=== PATIENT | female | born 1940 | race Caucasian/White ===

== ENCOUNTER 2022-10-25 09:20 | Inpatient (IN) | payer OTHER ==
[~2022-10-25] VITALS: Ht 160 cm; Wt 62.6 kg
[2022-10-25 10:31] LABS: Basophils # (auto) 0 10 ^3/uL (0-0.2); Basophils % (auto) 0.4 % (0.0-2.0); Eosinophils # (auto) 0.1 10 ^3/uL (0-0.8); Eosinophils % (auto) 0.9 % (0.0-7.0); Hemoglobin 13.7 g/dL (12.2-16.2); Lymphocytes # (auto) 0.6 10 ^3/uL (0.4-5.4); Lymphocytes % (auto) 6.3 % (10.0-50.0); Mean Corpuscular Hemoglobin 31.2 pg (28.0-32.0); Mean Corpuscular Hgb Conc. 34.2 g/dL (32.0-36.0); Mean Corpuscular Volume 91.5 fL (80.0-100.0); Monocytes # (auto) 0.4 10 ^3/uL (0-1.3); Monocytes % (auto) 4.8 % (0.0-12.0); Neutrophils # (auto) 7.8 10 ^3/uL (1.6-8.6); Neutrophils % (auto) 87.6 % (37.0-80.0); Nucleated Red Blood Cells % 0.3 %; Red Blood Cells 4.38 10^6/uL (4.0-5.20); Red Cell Distribution Width 15.4 % (11.8-14.3); White Blood Cell 8.9 10^3/uL (4.4-10.8)
[2022-10-25 10:56] LABS: Albumin 3.4 g/dL (3.4-5.0); Calcium 8.9 mg/dL (8.5-10.1); Potassium 3.1 mmol/L (3.5-5.1)
[2022-10-25 10:59] LABS: BUN/Creatinine Ratio 19.4 (10.0-20.0); Bilirubin, Total 0.5 mg/dL (0.2-1.0)
[2022-10-25] MEDS ORDERED: POTASSIUM EFFERVESENT TAB 25 MEQ PO ONE ×2 (12:15→13:45)
[2022-10-25] MEDS ORDERED: ONDANSETRON HCL 4 MG/2 ML VIAL IV ONE ×2 (12:45→20:30)
[2022-10-25] MEDS ORDERED: HYDROmorphone HCL 2 MG/ML VL/or syr IV ONE ×2 (12:45→20:30)
[2022-10-25] MEDS ORDERED: ACETAMINOPHEN 325 MG TAB PO PRN ×2 (13:15)
[2022-10-25] MEDS ORDERED: PANTOPRAZOLE 40 MG/10 ML VIAL INJ IV ONE (13:45)
[2022-10-25] MEDS: SODIUM CHLORIDE 0.9% 1,000 ML IV SCH (20:34)
[2022-10-25] MEDS: HEPARIN SODIUM (PORCINE) 5000 UNITS/ML 1ML VIAL SC SCH (22:19)
[2022-10-26] MEDS: SODIUM CHLORIDE 0.9% 1,000 ML IV SCH ×2 (02:35→16:03)
[2022-10-26 06:33] LABS: Albumin 2.6 g/dL (3.4-5.0); BUN/Creatinine Ratio 22.8 (10.0-20.0); Calcium 8.7 mg/dL (8.5-10.1); Potassium 4.2 mmol/L (3.5-5.1)
[2022-10-26 06:36] LABS: Bilirubin, Total 0.5 mg/dL (0.2-1.0)
[2022-10-26 07:07] LABS: Basophils # (auto) 0 10 ^3/uL (0-0.2); Basophils % (auto) 0.2 % (0.0-2.0); Eosinophils # (auto) 0 10 ^3/uL (0-0.8); Hematocrit 29.4 % (36.0-46.0); Lymphocytes # (auto) 0.5 10 ^3/uL (0.4-5.4); Lymphocytes % (auto) 4.2 % (10.0-50.0); Mean Corpuscular Hemoglobin 31.9 pg (28.0-32.0); Mean Corpuscular Hgb Conc. 34.1 g/dL (32.0-36.0); Mean Corpuscular Volume 93.5 fL (80.0-100.0); Monocytes # (auto) 1.1 10 ^3/uL (0-1.3); Monocytes % (auto) 9.5 % (0.0-12.0); Neutrophils # (auto) 9.9 10 ^3/uL (1.6-8.6); Neutrophils % (auto) 86.1 % (37.0-80.0); Nucleated Red Blood Cells % 0.1 %; Red Blood Cells 3.14 10^6/uL (4.0-5.20); Red Cell Distribution Width 15.3 % (11.8-14.3); White Blood Cell 11.5 10^3/uL (4.4-10.8)
[2022-10-26] MEDS: HEPARIN SODIUM (PORCINE) 5000 UNITS/ML 1ML VIAL SC SCH (09:46)
[2022-10-26] MEDS: PANTOPRAZOLE 40 MG/10 ML VIAL INJ IV SCH (09:46)
[2022-10-26] MEDS: ONDANSETRON HCL 4 MG/2 ML VIAL IV PRN ×2 (13:14→17:11)
[2022-10-26] MEDS: HYDROmorphone HCL 2 MG/ML VL/or syr IV PRN ×2 (13:16→17:11)
[2022-10-26 15:41] LABS: Urine Bacteria MANY /hpf (None Seen); Urine Blood 3+ /uL (Negative); Urine Mucus FEW (None Seen); Urine Specific Gravity 1.017 (1.001-1.035); Urine WBC 79 /hpf (0 - 5)
[2022-10-27] MEDS: HYDROmorphone HCL 2 MG/ML VL/or syr IV PRN ×2 (01:48→20:09)
[2022-10-27] MEDS: ONDANSETRON HCL 4 MG/2 ML VIAL IV PRN ×2 (01:48→20:12)
[2022-10-27] MEDS: SODIUM CHLORIDE 0.9% 1,000 ML IV SCH ×2 (05:12→19:39)
[2022-10-27] MEDS ORDERED: DexAMETHasone SOD PHOS 4 MG/1ML SDV INJ ONE (07:27)
[2022-10-27] MEDS ORDERED: ONDANSETRON HCL 4 MG/2 ML VIAL ONE (08:20)
[2022-10-27] MEDS ORDERED: DexAMETHasone SOD PHOS 10MG/1ML VIAL INJ ONE (08:20)
[2022-10-27] MEDS ORDERED: GLYCOPYRROLATE 0.2 MG/ML 1ML VIAL ONE (08:20)
[2022-10-27] MEDS ORDERED: KETOROLAC TROMETH 30 MG/ML 1ML VIAL ONE (08:20)
[2022-10-27] MEDS ORDERED: PROPOFOL 10 MG/ML 20 ML IV ONE (08:20)
[2022-10-27] MEDS ORDERED: PHENYLEPHRINE HCL 10 MG/ML VL IV ONE (08:30)
[2022-10-27] MEDS: cefTRIAXone 1GM/50ML D5W 50 ML IV SCH (08:58)
[2022-10-27] MEDS: PANTOPRAZOLE 40 MG/10 ML VIAL INJ IV SCH (10:00)
[2022-10-27] MEDS ORDERED: METOPROLOL TARTRATE 1MG/1ML-5ML VIAL IV ONE (10:24)
[2022-10-27] MEDS ORDERED: LIDOCAINE 1% (LOCAL ANESTH.) PF 5ml SDV ONE (12:14)
[2022-10-27] MEDS ORDERED: HYDROmorphone HCL 2 MG/ML VL/or syr IV PRN (12:15)
[2022-10-27] MEDS ORDERED: LABETALOL HCL 5 MG/ML 4ML SYRINGE IV PRN (12:15)
[2022-10-27] MEDS ORDERED: hydrALAZINE HCL 20 MG/ML VL IV PRN (12:15)
[2022-10-27] MEDS ORDERED: FLUMAZENIL 0.1 MG/ML INJ 10ML MDV IV PRN (12:15)
[2022-10-27] MEDS ORDERED: fentaNYL CITRATE 100 MCG/2 ML VL IV PRN (12:15)
[2022-10-27] MEDS ORDERED: ONDANSETRON HCL 4 MG/2 ML VIAL IV PRN (12:15)
[2022-10-27] MEDS ORDERED: ePHEDrine SULFATE 50 MG/ML AMP IV PRN (12:15)
[2022-10-27] MEDS ORDERED: NALOXONE HCL 0.4 MG/ML VIAL IV PRN (12:15)
[2022-10-27 16:30] VITALS: BP_SYST 116; BP_SYST 145; BP_DIAS 58; BP_DIAS 61
[2022-10-27 17:00] VITALS: BP 127/57
[2022-10-27 18:02] VITALS: BP 145/61
[2022-10-27] MEDS ORDERED: ATENOLOL 25 MG TAB PO ONE (18:30)
[2022-10-27 20:00] VITALS: BP 116/58
[2022-10-27 22:00] VITALS: BP 116/58
[2022-10-27] MEDS: NIFEdipine ER 30 MG TAB PO SCH (22:00)
[2022-10-27] MEDS: ATORVASTATIN 20 MG TAB PO SCH (23:31)
[2022-10-28] VITALS (9 sets, daily range): BP systolic 110–131; BP diastolic 52–63
[2022-10-28 06:33] LABS: Basophils # (auto) 0 10 ^3/uL (0-0.2); Eosinophils # (auto) 0 10 ^3/uL (0-0.8); Lymphocytes # (auto) 0.4 10 ^3/uL (0.4-5.4); Red Cell Distribution Width 15.6 % (11.8-14.3)
[2022-10-28 06:36] LABS: BUN/Creatinine Ratio 37.5 (10.0-20.0); Basophils % (auto) 0.1 % (0.0-2.0); Eosinophils % (auto) 0.1 % (0.0-7.0); Hematocrit 21.5 % (36.0-46.0); Hemoglobin 7.5 g/dL (12.2-16.2); Lymphocytes % (auto) 3.7 % (10.0-50.0); Magnesium 1.9 mg/dL (1.6-2.6); Mean Corpuscular Hemoglobin 33.1 pg (28.0-32.0); Mean Corpuscular Hgb Conc. 35.1 g/dL (32.0-36.0); Mean Corpuscular Volume 94.2 fL (80.0-100.0); Monocytes # (auto) 1.2 10 ^3/uL (0-1.3); Monocytes % (auto) 10.8 % (0.0-12.0); Neutrophils # (auto) 9.4 10 ^3/uL (1.6-8.6); Neutrophils % (auto) 85.3 % (37.0-80.0); Nucleated Red Blood Cells % 0.1 %; Potassium 4.1 mmol/L (3.5-5.1); Red Blood Cells 2.28 10^6/uL (4.0-5.20)
[2022-10-28 06:44] LABS: Calcium 8.6 mg/dL (8.5-10.1)
[2022-10-28] MEDS: cefTRIAXone 1GM/50ML D5W 50 ML IV SCH (08:26)
[2022-10-28] MEDS: ONDANSETRON HCL 4 MG/2 ML VIAL IV PRN (08:33)
[2022-10-28] MEDS: HYDROmorphone HCL 2 MG/ML VL/or syr IV PRN (08:34)
[2022-10-28] MEDS: SODIUM CHLORIDE 0.9% 1,000 ML IV SCH ×2 (08:36→15:52)
[2022-10-28] MEDS: PANTOPRAZOLE 40 MG/10 ML VIAL INJ IV SCH (09:16)
[2022-10-28] MEDS: ATENOLOL 25 MG TAB PO SCH (09:17)
[2022-10-28] MEDS: NIFEdipine ER 30 MG TAB PO SCH (09:18)
[2022-10-28] MEDS ORDERED: FUROSEMIDE 20 MG TAB PO SCH (10:00)
[2022-10-28] MEDS ORDERED: ATEN-60 PO (17:05)
[2022-10-28] MEDS ORDERED: ATO40T PO (17:05)
[2022-10-28] MEDS ORDERED: FURO20TA3 PO (17:05)
[2022-10-28] MEDS ORDERED: TOPI50TA53 PO (17:05)
[2022-10-28] MEDS ORDERED: NIF10C PO (17:05)
[2022-10-28] MEDS ORDERED: ASPI325T4 PO (17:05)
[2022-10-28] MEDS ORDERED: BUTAPT PO (17:05)
[2022-10-28] MEDS ORDERED: LEVO25CA3 PO (17:05)
[2022-10-28 18:27] LABS: Hematocrit 26.6 % (36.0-46.0); Hemoglobin 9.1 g/dL (12.2-16.2)
[2022-10-28] MEDS: ATORVASTATIN 20 MG TAB PO SCH (21:28)
[2022-10-29] VITALS (7 sets, daily range): BP systolic 101–157; BP diastolic 55–87
[2022-10-29] MEDS: ONDANSETRON HCL 4 MG/2 ML VIAL IV PRN ×3 (05:44→20:27)
[2022-10-29] MEDS: HYDROmorphone HCL 2 MG/ML VL/or syr IV PRN ×3 (05:45→20:32)
[2022-10-29 06:01] LABS: Basophils # (auto) 0 10 ^3/uL (0-0.2); Basophils % (auto) 0.2 % (0.0-2.0); Eosinophils # (auto) 0.1 10 ^3/uL (0-0.8); Eosinophils % (auto) 0.6 % (0.0-7.0); Hematocrit 27.4 % (36.0-46.0); Hemoglobin 9.5 g/dL (12.2-16.2); Lymphocytes # (auto) 0.5 10 ^3/uL (0.4-5.4); Lymphocytes % (auto) 5.7 % (10.0-50.0); Mean Corpuscular Hemoglobin 31.9 pg (28.0-32.0); Mean Corpuscular Hgb Conc. 34.8 g/dL (32.0-36.0); Mean Corpuscular Volume 91.6 fL (80.0-100.0); Monocytes # (auto) 0.8 10 ^3/uL (0-1.3); Monocytes % (auto) 8.9 % (0.0-12.0); Neutrophils # (auto) 7.2 10 ^3/uL (1.6-8.6); Neutrophils % (auto) 84.6 % (37.0-80.0); Red Blood Cells 2.99 10^6/uL (4.0-5.20); Red Cell Distribution Width 15.2 % (11.8-14.3); White Blood Cell 8.5 10^3/uL (4.4-10.8)
[2022-10-29 06:13] LABS: INR 0.97 (0.9-1.15); Partial Thromboplastin Time 28.3 sec (24.6-33.4)
[2022-10-29 06:18] LABS: Calcium 8.2 mg/dL (8.5-10.1); Potassium 3.7 mmol/L (3.5-5.1)
[2022-10-29 06:20] LABS: BUN/Creatinine Ratio 38.7 (10.0-20.0)
[2022-10-29] MEDS: cefTRIAXone 1GM/50ML D5W 50 ML IV SCH (08:21)
[2022-10-29] MEDS: PANTOPRAZOLE 40 MG/10 ML VIAL INJ IV SCH (10:46)
[2022-10-29] MEDS: ATENOLOL 25 MG TAB PO SCH (10:47)
[2022-10-29] MEDS: SODIUM CHLORIDE 0.9% 1,000 ML IV SCH (10:47)
[2022-10-29] MEDS: NIFEdipine ER 30 MG TAB PO SCH (10:47)
[2022-10-29] MEDS ORDERED: fentaNYL CITRATE 100 MCG/2 ML VL ONE (10:49)
[2022-10-29] MEDS ORDERED: SODIUM CHLORIDE LOCK 10 ML ONE (10:49)
[2022-10-29] MEDS ORDERED: DexAMETHasone SOD PHOS 10MG/1ML VIAL INJ ONE (10:49)
[2022-10-29] MEDS ORDERED: ONDANSETRON HCL 4 MG/2 ML VIAL ONE (10:49)
[2022-10-29] MEDS ORDERED: PROPOFOL 10 MG/ML 20 ML IV ONE (10:49)
[2022-10-29] MEDS ORDERED: MIDAZOLAM HCL 2MG/2ML 2ml VIAL (1mg/ml) ONE (10:49)
[2022-10-29] MEDS ORDERED: EPINEPHrine HCL 1 MG/1 ML AMP ONE (10:49)
[2022-10-29] MEDS ORDERED: BUPIVACAINE 0.5% P/F INJ 10 ML VIAL ONE (10:52)
[2022-10-29] MEDS ORDERED: ceFAZolin 1GM/50ML 100 ML IV ONE (11:25)
[2022-10-29] MEDS: HYDROcodone-ACET 5/325MG TAB PO PRN (18:44)
[2022-10-29] MEDS: ATORVASTATIN 20 MG TAB PO SCH (21:38)
[2022-10-30 00:20] VITALS: BP 135/64
[2022-10-30 05:00] VITALS: BP 141/68
[2022-10-30] MEDS: SODIUM CHLORIDE 0.9% 1,000 ML IV SCH ×2 (05:45→14:07)
[2022-10-30 05:56] LABS: Basophils # (auto) 0 10 ^3/uL (0-0.2); Basophils % (auto) 0.2 % (0.0-2.0); Eosinophils # (auto) 0 10 ^3/uL (0-0.8); Eosinophils % (auto) 0.2 % (0.0-7.0); Hematocrit 24.9 % (36.0-46.0); Hemoglobin 8.9 g/dL (12.2-16.2); Lymphocytes # (auto) 0.4 10 ^3/uL (0.4-5.4); Lymphocytes % (auto) 4.5 % (10.0-50.0); Mean Corpuscular Hemoglobin 32.6 pg (28.0-32.0); Mean Corpuscular Volume 90.7 fL (80.0-100.0); Monocytes # (auto) 0.9 10 ^3/uL (0-1.3); Monocytes % (auto) 9.6 % (0.0-12.0); Neutrophils # (auto) 8.3 10 ^3/uL (1.6-8.6); Neutrophils % (auto) 85.5 % (37.0-80.0); Red Blood Cells 2.74 10^6/uL (4.0-5.20); Red Cell Distribution Width 14.9 % (11.8-14.3); White Blood Cell 9.8 10^3/uL (4.4-10.8)
[2022-10-30] MEDS: HYDROcodone-ACET 5/325MG TAB PO PRN ×2 (05:58→19:57)
[2022-10-30 06:10] LABS: BUN/Creatinine Ratio 31.4 (10.0-20.0); Calcium 8.2 mg/dL (8.5-10.1); Potassium 3.5 mmol/L (3.5-5.1)
[2022-10-30 09:00] VITALS: BP 136/73
[2022-10-30] MEDS: PANTOPRAZOLE 40 MG/10 ML VIAL INJ IV SCH (10:09)
[2022-10-30] MEDS: cefTRIAXone 1GM/50ML D5W 50 ML IV SCH (10:09)
[2022-10-30] MEDS: NIFEdipine ER 30 MG TAB PO SCH (10:11)
[2022-10-30] MEDS: ATENOLOL 25 MG TAB PO SCH (10:11)
[2022-10-30] MEDS: HYDROmorphone HCL 2 MG/ML VL/or syr IV PRN ×2 (10:13→14:00)
[2022-10-30 13:00] VITALS: BP 125/56
[2022-10-30 16:47] VITALS: BP 131/61
[2022-10-30] MEDS: ATORVASTATIN 20 MG TAB PO SCH (21:45)
[2022-10-30 22:00] VITALS: BP 130/59
[2022-10-31] MEDS: HYDROcodone-ACET 5/325MG TAB PO PRN ×3 (03:42→16:09)
[2022-10-31 05:00] VITALS: BP 114/55
[2022-10-31 09:00] VITALS: BP 124/59
[2022-10-31] MEDS: cefTRIAXone 1GM/50ML D5W 50 ML IV SCH (09:52)
[2022-10-31] MEDS: PANTOPRAZOLE 40 MG/10 ML VIAL INJ IV SCH (09:52)
[2022-10-31] MEDS: NIFEdipine ER 30 MG TAB PO SCH (09:53)
[2022-10-31] MEDS: ATENOLOL 25 MG TAB PO SCH (09:54)
[2022-10-31 13:00] VITALS: BP 135/66
[2022-10-31] MEDS ORDERED: BUTALBITAL ACETAMINOPHEN CAFFEINE PO PRN (14:00)
[2022-10-31 17:00] VITALS: BP 104/57
[2022-10-31] MEDS ORDERED: TOPIRAMATE 25 MG TAB PO SCH (22:00)
[2022-10-31] MEDS ORDERED: PATIENTS OWN MEDICATION (Atorvastatin Calcium (Lipitor) 1 TAB) PO SCH (22:00)
[2022-11-01] MEDS ORDERED: LEVOTHYROXINE SODIUM 25 MCG TAB PO SCH (07:00)
[2022-11-01] MEDS ORDERED: ASPirin-EC 81 mg tab PO SCH (10:00)
[2022-11-01] MEDS ORDERED: FUROSEMIDE 20 MG TAB PO SCH (10:00)
== END 2022-10-31 19:30 | DRG 480 ==
LOC: ER 09:20 → EDBD 09:20 → EDUNIT# 09:20 → TELE 13:03 → TELE-EAST 10-27 15:28
PROVIDERS: ADMIT Nurse Practitioner Family; ATTEND Internal Medicine
PROC: BQ11ZZZ Fluoroscopy of Left Hip (ICD-10-PCS; 2022-10-27)
PROC: 0QS704Z Reposition Left Upper Femur with Internal Fixation Device, Open Approach (ICD-10-PCS; principal; 2022-10-27 10:20)
PROC: 30233N1 Transfusion of Nonautologous Red Blood Cells into Peripheral Vein, Percutaneous Approach (ICD-10-PCS; 2022-10-28)
PROC: 0QSB34Z Reposition Right Lower Femur with Internal Fixation Device, Percutaneous Approach (ICD-10-PCS; 2022-10-29)
PROC: BQ13ZZZ Fluoroscopy of Right Femur (ICD-10-PCS; 2022-10-29)
DX: S72.22XA Displaced subtrochanteric fracture of left femur, initial encounter for closed fracture (principal); J18.9 Pneumonia, unspecified organism; N30.00 Acute cystitis without hematuria; J44.0 Chronic obstructive pulmonary disease with (acute) lower respiratory infection; E87.6 Hypokalemia; R74.8 Abnormal levels of other serum enzymes; E78.5 Hyperlipidemia, unspecified; I25.10 Atherosclerotic heart disease of native coronary artery without angina pectoris; I11.0 Hypertensive heart disease with heart failure; J44.9 Chronic obstructive pulmonary disease, unspecified; W01.0XXA Fall on same level from slipping, tripping and stumbling without subsequent striking against object, initial encounter; S72.451A Displaced supracondylar fracture without intracondylar extension of lower end of right femur, initial encounter for closed fracture; Z95.5 Presence of coronary angioplasty implant and graft; Z90.11 Acquired absence of right breast and nipple; D50.0 Iron deficiency anemia secondary to blood loss (chronic); Z79.899 Other long term (current) drug therapy; Z88.5 Allergy status to narcotic agent; Y93.89 Activity, other specified; Y92.098 Other place in other non-institutional residence as the place of occurrence of the external cause; Y99.8 Other external cause status; I50.9 Heart failure, unspecified
CPT/HCPCS: 29505; 36415; 71045; 73502; 73560; 73700; 76000; 80048; 80053; 81001; 83735; 83880; 84484; 85014; 85018; 85025; 85610; 85730; 86850; 86900; 86901; 86920; 87086; 87088; 87186; 93005; 93306; 93970; 97110; 97163; 97530; C9113; G0378; J0171; J0690; J0696; J1100; J1885; J2250; J2405; J2704; J3490

== ENCOUNTER 2022-12-08 11:48 | Inpatient (IN) | payer OTHER ==
[~2022-12-08] VITALS: Ht 160 cm; Wt 66.4 kg
[~2022-12-08 11:48] MED LIST: ASPI325T4 PO; ATEN-60 PO; ATO40T PO; BUTAPT PO; FURO20TA3 PO; LEVO25CA3 PO; NIF10C PO; TOPI50TA53 PO
[2022-12-08] MEDS ORDERED: SODIUM CHLORIDE 0.9% 500 ML IVB ONE (12:00)
[2022-12-08] MEDS: PANTOPRAZOLE 40 MG/10 ML VIAL INJ IV ONE ×2 (12:14→12:24)
[2022-12-08 12:36] LABS: Basophils # (auto) 0 10 ^3/uL (0-0.2); Basophils % (auto) 0.3 % (0.0-2.0); Eosinophils # (auto) 0.1 10 ^3/uL (0-0.8); Eosinophils % (auto) 1.1 % (0.0-7.0); Hemoglobin 9.5 g/dL (12.2-16.2); Lymphocytes # (auto) 0.5 10 ^3/uL (0.4-5.4); Mean Corpuscular Hemoglobin 29.8 pg (28.0-32.0); Mean Corpuscular Hgb Conc. 32.7 g/dL (32.0-36.0); Mean Corpuscular Volume 91.3 fL (80.0-100.0); Monocytes # (auto) 0.8 10 ^3/uL (0-1.3); Neutrophils # (auto) 10.6 10 ^3/uL (1.6-8.6); Neutrophils % (auto) 87.6 % (37.0-80.0); Red Blood Cells 3.17 10^6/uL (4.0-5.20); Red Cell Distribution Width 16.4 % (11.8-14.3); White Blood Cell 12.1 10^3/uL (4.4-10.8)
[2022-12-08 12:50] VITALS: PULSE 86; RESP 30; O2SAT 96
[2022-12-08 13:00] LABS: INR 1.01 (0.9-1.15); Partial Thromboplastin Time 28.9 SEC (24.5-34.5); Prothrombin Time 10.6 sec (9.3-11.8)
[2022-12-08] MEDS ORDERED: cefTRIAXone 1GM/50ML D5W 50 ML IV ONE (13:00)
[2022-12-08 13:08] LABS: Albumin 2.3 g/dL (3.4-5.0); Calcium 8.9 mg/dL (8.5-10.1); Magnesium 3.1 mg/dL (1.6-2.6); Potassium 4.5 mmol/L (3.5-5.1)
[2022-12-08 13:12] LABS: BUN/Creatinine Ratio 32.7 (10.0-20.0); Bilirubin, Total 0.3 mg/dL (0.2-1.0); Total Protein 6.5 g/dL (6.4-8.2)
[2022-12-08 13:33] LABS: Urine Bacteria MANY /hpf (None Seen); Urine Blood 3+ /uL (Negative); Urine Clarity CLOUDY (Clear); Urine Protein, UAD 3+ (Negative); Urine Urobilinogen Normal (Negative); Urine WBC 755 /hpf (0 - 5); Urine WBC Clumps PRESENT /hpf (None Seen)
[2022-12-08 13:36] LABS: Urine Specific Gravity 1.013 (1.001-1.035)
[2022-12-08 13:37] LABS: Urine Color Brown (Yellow)
[2022-12-08 14:20] LABS: Lactic Acid w/Reflex 4.2 mmol/L (0.4-2.0)
[2022-12-08] MEDS ORDERED: DOCUSATE SOD 100 MG CAP PO PRN (15:30)
[2022-12-08] MEDS ORDERED: HYDROmorphone HCL 2 MG/ML VL/or syr IV PRN (15:30)
[2022-12-08] MEDS ORDERED: HYDROcodone-ACET 5/325MG TAB PO PRN (15:30)
[2022-12-08] MEDS ORDERED: NITROGLYCERIN 0.4 MG SL TAB SL PRN (15:30)
[2022-12-08] MEDS ORDERED: MORPHINE SULFATE INJ 2 MG/ml SYRG IV PRN (15:30)
[2022-12-08] MEDS ORDERED: IPRATROPIUM BROM 0.5 MG/2.5ML INH SOL NEB PRN (16:00)
[2022-12-08] MEDS ORDERED: ALBUTEROL SULF 2.5 MG/0.5ML(0.5%) NEB SOLN NEB PRN (16:00)
[2022-12-08] MEDS: SODIUM CHLORIDE 0.9% 1,000 ML IV SCH (16:05)
[2022-12-08 16:07] VITALS: BP 135/59; PULSE 86; RESP 16; TEMP 97.7; O2SAT 98
[2022-12-08 18:07] VITALS: O2SAT 94
[2022-12-08 20:06] VITALS: PULSE 92; RESP 18; O2SAT 95
[2022-12-08] MEDS: TOPIRAMATE 25 MG TAB PO SCH (22:32)
[2022-12-08] MEDS: ATORVASTATIN 20 MG TAB PO SCH (22:32)
[2022-12-08] MEDS: MEROPENEM 1GM IVPB 100 ML IV SCH (22:34)
[2022-12-08] MEDS: ACETAMINOPHEN 325 MG TAB PO PRN (23:24)
[2022-12-09 05:40] VITALS: O2SAT 99
[2022-12-09 05:57] LABS: Basophils # (auto) 0 10 ^3/uL (0-0.2); Basophils % (auto) 0.3 % (0.0-2.0); Eosinophils % (auto) 1.3 % (0.0-7.0); Hemoglobin 8.1 g/dL (12.2-16.2); Lymphocytes # (auto) 0.6 10 ^3/uL (0.4-5.4); White Blood Cell 11.6 10^3/uL (4.4-10.8)
[2022-12-09 05:59] LABS: Eosinophils # (auto) 0.1 10 ^3/uL (0-0.8); Hematocrit 24.5 % (36.0-46.0); Lymphocytes % (auto) 5.4 % (10.0-50.0); Mean Corpuscular Hemoglobin 30.5 pg (28.0-32.0); Mean Corpuscular Volume 92.3 fL (80.0-100.0); Monocytes # (auto) 0.7 10 ^3/uL (0-1.3); Monocytes % (auto) 6.3 % (0.0-12.0); Neutrophils % (auto) 86.7 % (37.0-80.0); Nucleated Red Blood Cells % 0.1 %; Red Blood Cells 2.66 10^6/uL (4.0-5.20); Red Cell Distribution Width 16.3 % (11.8-14.3)
[2022-12-09 06:15] LABS: Albumin 1.9 g/dL (3.4-5.0); Calcium 8.1 mg/dL (8.5-10.1); Potassium 3.9 mmol/L (3.5-5.1)
[2022-12-09] MEDS: SODIUM CHLORIDE 0.9% 1,000 ML IV SCH ×3 (06:15→22:19)
[2022-12-09 06:18] LABS: BUN/Creatinine Ratio 33.3 (10.0-20.0); Bilirubin, Total 0.2 mg/dL (0.2-1.0); Total Protein 5.6 g/dL (6.4-8.2)
[2022-12-09] MEDS ORDERED: IOTHALAMATE MEGLUMINE INJ 250ML BOT UR ONE (09:41)
[2022-12-09] MEDS ORDERED: FUROSEMIDE 20 MG TAB PO SCH (10:00)
[2022-12-09] MEDS: PANTOPRAZOLE 40 MG/10 ML VIAL INJ IV SCH (11:10)
[2022-12-09] MEDS: ATENOLOL 25 MG TAB PO SCH (11:10)
[2022-12-09] MEDS: NIFEdipine ER 30 MG TAB PO SCH (11:11)
[2022-12-09] MEDS: TOPIRAMATE 25 MG TAB PO SCH ×2 (11:11→22:14)
[2022-12-09] MEDS: LEVOTHYROXINE SODIUM 25 MCG TAB PO SCH (11:11)
[2022-12-09] MEDS: LACTULOSE 20Gm/30ML SOLN PO SCH (11:12)
[2022-12-09] MEDS: ENOXAPARIN SOD 40 MG/0.4 ML SYRINGE SC SCH (11:12)
[2022-12-09] MEDS: MEROPENEM 1GM IVPB 100 ML IV SCH ×2 (11:12→22:14)
[2022-12-09] MEDS: ACETAMINOPHEN 325 MG TAB PO PRN ×2 (11:14→17:28)
[2022-12-09 11:50] VITALS: PULSE 72; RESP 16; O2SAT 96
[2022-12-09 19:18] VITALS: O2SAT 99
[2022-12-09 19:30] VITALS: PULSE 76; RESP 20; O2SAT 97
[2022-12-09] MEDS: ATORVASTATIN 20 MG TAB PO SCH (22:14)
[2022-12-10] VITALS (10 sets, daily range): BP systolic 108–119; BP diastolic 50–59; PULSE 54–92; RESP 16–22; TEMP 36.2; O2SAT 97–100
[2022-12-10] MEDS: ACETAMINOPHEN 325 MG TAB PO PRN ×4 (03:05→22:47)
[2022-12-10] MEDS ORDERED: FURO40TA4 PO (03:50)
[2022-12-10 05:47] LABS: Anion Gap 3 (5-15); Calcium 8.5 mg/dL (8.5-10.1); Carbon Dioxide 32 mmol/L (21-32); Chloride 97 mmol/L (98-107); GFR African American 216 mL/min; GFR Non-African American 178 mL/min; Glucose 95 mg/dL (74-106); Magnesium 2.4 mg/dL (1.6-2.6); Potassium 4.2 mmol/L (3.5-5.1); Sodium 132 mmol/L (136-145)
[2022-12-10 05:50] LABS: Basophils # (auto) 0 10 ^3/uL (0-0.2); Basophils % (auto) 0.4 % (0.0-2.0); Eosinophils # (auto) 0.4 10 ^3/uL (0-0.8); Eosinophils % (auto) 3.1 % (0.0-7.0); Hematocrit 26.7 % (36.0-46.0); Hemoglobin 8.9 g/dL (12.2-16.2); Lymphocytes # (auto) 0.7 10 ^3/uL (0.4-5.4); Lymphocytes % (auto) 5.8 % (10.0-50.0); Mean Corpuscular Hemoglobin 30.5 pg (28.0-32.0); Mean Corpuscular Hgb Conc. 33.3 g/dL (32.0-36.0); Mean Corpuscular Volume 91.8 fL (80.0-100.0); Monocytes # (auto) 0.9 10 ^3/uL (0-1.3); Monocytes % (auto) 8.2 % (0.0-12.0); Neutrophils # (auto) 9.6 10 ^3/uL (1.6-8.6); Neutrophils % (auto) 82.5 % (37.0-80.0); Red Blood Cells 2.91 10^6/uL (4.0-5.20); Red Cell Distribution Width 16.5 % (11.8-14.3); White Blood Cell 11.6 10^3/uL (4.4-10.8)
[2022-12-10 05:52] LABS: BUN/Creatinine Ratio 32.4 (10.0-20.0); Blood Urea Nitrogen 12 mg/dL (7-18)
[2022-12-10] MEDS: ATENOLOL 25 MG TAB PO SCH (08:59)
[2022-12-10] MEDS: TOPIRAMATE 25 MG TAB PO SCH ×2 (10:00→21:29)
[2022-12-10] MEDS ORDERED: NIFE1TAB31 PO (10:06)
[2022-12-10] MEDS ORDERED: MAGN400T40 PO (10:06)
[2022-12-10] MEDS ORDERED: ASPI-543 PO (10:06)
[2022-12-10] MEDS ORDERED: MULT-1018 PO (10:06)
[2022-12-10] MEDS ORDERED: CHOL20007 PO (10:06)
[2022-12-10] MEDS ORDERED: ASCO500T11 PO (10:06)
[2022-12-10] MEDS: LEVOTHYROXINE SODIUM 25 MCG TAB PO SCH (10:08)
[2022-12-10] MEDS: NIFEdipine ER 30 MG TAB PO SCH (10:09)
[2022-12-10] MEDS: PANTOPRAZOLE 40 MG/10 ML VIAL INJ IV SCH (10:15)
[2022-12-10] MEDS: LACTULOSE 20Gm/30ML SOLN PO SCH (10:16)
[2022-12-10] MEDS: ENOXAPARIN SOD 40 MG/0.4 ML SYRINGE SC SCH (10:16)
[2022-12-10] MEDS: SODIUM CHLORIDE 0.9% 1,000 ML IV SCH (10:26)
[2022-12-10] MEDS: MEROPENEM 1GM IVPB 100 ML IV SCH ×2 (11:49→21:28)
[2022-12-10] MEDS: ATORVASTATIN 20 MG TAB PO SCH (21:29)
[2022-12-11] VITALS (8 sets, daily range): BP systolic 114–143; BP diastolic 50–66; PULSE 75–99; RESP 18–22; TEMP 36.2; O2SAT 96–100
[2022-12-11] MEDS: SODIUM CHLORIDE 0.9% 1,000 ML IV SCH ×2 (03:45→18:13)
[2022-12-11] MEDS: ACETAMINOPHEN 325 MG TAB PO PRN ×3 (04:54→18:09)
[2022-12-11] MEDS: NIFEdipine ER 30 MG TAB PO SCH (09:50)
[2022-12-11] MEDS: LEVOTHYROXINE SODIUM 25 MCG TAB PO SCH (09:50)
[2022-12-11] MEDS: LACTULOSE 20Gm/30ML SOLN PO SCH (09:51)
[2022-12-11] MEDS: PANTOPRAZOLE 40 MG/10 ML VIAL INJ IV SCH (09:51)
[2022-12-11] MEDS: ATENOLOL 25 MG TAB PO SCH (09:51)
[2022-12-11] MEDS: ENOXAPARIN SOD 40 MG/0.4 ML SYRINGE SC SCH (09:51)
[2022-12-11] MEDS: MEROPENEM 1GM IVPB 100 ML IV SCH ×2 (09:52→21:52)
[2022-12-11] MEDS: GENTAMICIN SULF 0.3% OPTH(EYE) OINT 3.5GM EACHEYE SCH ×2 (10:00→22:00)
[2022-12-11] MEDS: TOPIRAMATE 25 MG TAB PO SCH ×2 (10:00→21:52)
[2022-12-11 10:53] LABS: Basophils # (auto) 0 10 ^3/uL (0-0.2); Basophils % (auto) 0.3 % (0.0-2.0); Eosinophils # (auto) 0.3 10 ^3/uL (0-0.8); Eosinophils % (auto) 3.3 % (0.0-7.0); Hematocrit 24.3 % (36.0-46.0); Hemoglobin 7.9 g/dL (12.2-16.2); Lymphocytes # (auto) 0.5 10 ^3/uL (0.4-5.4); Lymphocytes % (auto) 6.4 % (10.0-50.0); Mean Corpuscular Hemoglobin 30.4 pg (28.0-32.0); Mean Corpuscular Hgb Conc. 32.5 g/dL (32.0-36.0); Mean Corpuscular Volume 93.5 fL (80.0-100.0); Monocytes # (auto) 0.5 10 ^3/uL (0-1.3); Monocytes % (auto) 5.7 % (0.0-12.0); Neutrophils % (auto) 84.3 % (37.0-80.0); Red Cell Distribution Width 16.9 % (11.8-14.3); White Blood Cell 8.2 10^3/uL (4.4-10.8)
[2022-12-11] MEDS: ATORVASTATIN 20 MG TAB PO SCH (21:52)
[2022-12-12] VITALS (7 sets, daily range): BP systolic 116–138; BP diastolic 50–77; PULSE 72–87; RESP 17–20; TEMP 36.2; O2SAT 94–99
[2022-12-12] MEDS: ACETAMINOPHEN 325 MG TAB PO PRN ×3 (01:10→18:15)
[2022-12-12 09:33] LABS: Eosinophils # (auto) 0.4 10 ^3/uL (0-0.8); Lymphocytes # (auto) 0.6 10 ^3/uL (0.4-5.4); Neutrophils # (auto) 5.4 10 ^3/uL (1.6-8.6)
[2022-12-12 09:34] LABS: Basophils # (auto) 0.1 10 ^3/uL (0-0.2); Basophils % (auto) 0.9 % (0.0-2.0); Eosinophils % (auto) 5.8 % (0.0-7.0); Hematocrit 26.9 % (36.0-46.0); Hemoglobin 8.7 g/dL (12.2-16.2); Lymphocytes % (auto) 9.2 % (10.0-50.0); Mean Corpuscular Hemoglobin 30.1 pg (28.0-32.0); Mean Corpuscular Hgb Conc. 32.6 g/dL (32.0-36.0); Mean Corpuscular Volume 92.3 fL (80.0-100.0); Monocytes # (auto) 0.5 10 ^3/uL (0-1.3); Monocytes % (auto) 7.3 % (0.0-12.0); Neutrophils % (auto) 76.8 % (37.0-80.0); Red Blood Cells 2.91 10^6/uL (4.0-5.20); Red Cell Distribution Width 16.5 % (11.8-14.3)
[2022-12-12 09:48] LABS: BUN/Creatinine Ratio 28.1 (10.0-20.0); Calcium 8.4 mg/dL (8.5-10.1); Potassium 3.8 mmol/L (3.5-5.1)
[2022-12-12] MEDS: TOPIRAMATE 25 MG TAB PO SCH ×2 (10:00→21:43)
[2022-12-12] MEDS: ENOXAPARIN SOD 40 MG/0.4 ML SYRINGE SC SCH (10:30)
[2022-12-12] MEDS: LACTULOSE 20Gm/30ML SOLN PO SCH (10:30)
[2022-12-12] MEDS: MEROPENEM 1GM IVPB 100 ML IV SCH ×2 (10:30→21:43)
[2022-12-12] MEDS: PANTOPRAZOLE 40 MG/10 ML VIAL INJ IV SCH (10:31)
[2022-12-12] MEDS: LEVOTHYROXINE SODIUM 25 MCG TAB PO SCH (10:31)
[2022-12-12] MEDS: NIFEdipine ER 30 MG TAB PO SCH (10:32)
[2022-12-12] MEDS: ATENOLOL 25 MG TAB PO SCH (10:33)
[2022-12-12] MEDS: GENTAMICIN SULF 0.3% OPTH(EYE) OINT 3.5GM EACHEYE SCH ×2 (12:15→22:00)
[2022-12-12] MEDS: SODIUM CHLORIDE 0.9% 1,000 ML IV SCH (18:55)
[2022-12-12] MEDS: ATORVASTATIN 20 MG TAB PO SCH (21:43)
[2022-12-13] VITALS (7 sets, daily range): BP systolic 106–148; BP diastolic 51–68; PULSE 50–82; RESP 17–19; TEMP 97.6–98.3; O2SAT 96–99
[2022-12-13] MEDS: ACETAMINOPHEN 325 MG TAB PO PRN ×3 (00:54→14:50)
[2022-12-13] MEDS: SODIUM CHLORIDE 0.9% 1,000 ML IV SCH (05:16)
[2022-12-13] MEDS: MEROPENEM 1GM IVPB 100 ML IV SCH ×2 (09:55→21:22)
[2022-12-13] MEDS: ENOXAPARIN SOD 40 MG/0.4 ML SYRINGE SC SCH (09:55)
[2022-12-13] MEDS: LEVOTHYROXINE SODIUM 25 MCG TAB PO SCH (09:56)
[2022-12-13] MEDS: PANTOPRAZOLE 40 MG/10 ML VIAL INJ IV SCH (09:56)
[2022-12-13] MEDS: ATENOLOL 25 MG TAB PO SCH (09:56)
[2022-12-13] MEDS: NIFEdipine ER 30 MG TAB PO SCH (09:56)
[2022-12-13] MEDS: LACTULOSE 20Gm/30ML SOLN PO SCH (09:56)
[2022-12-13] MEDS: TOPIRAMATE 25 MG TAB PO SCH ×2 (09:57→21:23)
[2022-12-13] MEDS: GENTAMICIN SULF 0.3% OPTH(EYE) OINT 3.5GM EACHEYE SCH (09:57)
[2022-12-13] MEDS: GENTAMICIN OPTH sol 0.3% 5ml EACHEYE SCH (18:27)
[2022-12-13] MEDS: ATORVASTATIN 20 MG TAB PO SCH (21:23)
[2022-12-14] VITALS (9 sets, daily range): BP systolic 96–154; BP diastolic 46–71; PULSE 67–82; RESP 16–18; TEMP 96.1–98.4; O2SAT 92–98
[2022-12-14] MEDS: GENTAMICIN OPTH sol 0.3% 5ml EACHEYE SCH ×4 (00:32→17:16)
[2022-12-14] MEDS: ACETAMINOPHEN 325 MG TAB PO PRN ×2 (04:24→17:16)
[2022-12-14] MEDS: MEROPENEM 1GM IVPB 100 ML IV SCH ×2 (09:32→21:53)
[2022-12-14] MEDS: LACTULOSE 20Gm/30ML SOLN PO SCH (09:32)
[2022-12-14] MEDS: PANTOPRAZOLE 40 MG/10 ML VIAL INJ IV SCH (09:32)
[2022-12-14] MEDS: ENOXAPARIN SOD 40 MG/0.4 ML SYRINGE SC SCH (09:33)
[2022-12-14] MEDS: TOPIRAMATE 25 MG TAB PO SCH ×2 (09:34→21:49)
[2022-12-14] MEDS: NIFEdipine ER 30 MG TAB PO SCH (09:35)
[2022-12-14] MEDS: LEVOTHYROXINE SODIUM 25 MCG TAB PO SCH (09:35)
[2022-12-14] MEDS: ATENOLOL 25 MG TAB PO SCH (09:35)
[2022-12-14] MEDS: ATORVASTATIN 20 MG TAB PO SCH (21:49)
[2022-12-15] VITALS (9 sets, daily range): BP systolic 98–146; BP diastolic 43–71; PULSE 67–88; RESP 16–22; TEMP 95.6–98.4; O2SAT 93–98
[2022-12-15] MEDS: GENTAMICIN OPTH sol 0.3% 5ml EACHEYE SCH ×5 (06:30→23:17)
[2022-12-15 06:43] LABS: Basophils # (auto) 0.1 10 ^3/uL (0-0.2); Basophils % (auto) 1.3 % (0.0-2.0); Eosinophils # (auto) 0.3 10 ^3/uL (0-0.8); Eosinophils % (auto) 5.3 % (0.0-7.0); Hematocrit 26.2 % (36.0-46.0); Hemoglobin 8.6 g/dL (12.2-16.2); Lymphocytes # (auto) 0.6 10 ^3/uL (0.4-5.4); Lymphocytes % (auto) 10.5 % (10.0-50.0); Mean Corpuscular Hemoglobin 31.4 pg (28.0-32.0); Mean Corpuscular Volume 95.2 fL (80.0-100.0); Monocytes # (auto) 0.5 10 ^3/uL (0-1.3); Monocytes % (auto) 8.5 % (0.0-12.0); Neutrophils # (auto) 4.4 10 ^3/uL (1.6-8.6); Neutrophils % (auto) 74.4 % (37.0-80.0); Red Blood Cells 2.75 10^6/uL (4.0-5.20); Red Cell Distribution Width 16.8 % (11.8-14.3); White Blood Cell 5.9 10^3/uL (4.4-10.8)
[2022-12-15 06:59] LABS: Potassium 3.8 mmol/L (3.5-5.1)
[2022-12-15 07:01] LABS: Calcium 8.4 mg/dL (8.5-10.1); Magnesium 2.3 mg/dL (1.6-2.6)
[2022-12-15] MEDS: PANTOPRAZOLE 40 MG/10 ML VIAL INJ IV SCH ×2 (10:00→10:11)
[2022-12-15] MEDS: LACTULOSE 20Gm/30ML SOLN PO SCH (10:11)
[2022-12-15] MEDS: ENOXAPARIN SOD 40 MG/0.4 ML SYRINGE SC SCH (10:11)
[2022-12-15] MEDS: TOPIRAMATE 25 MG TAB PO SCH ×2 (10:11→22:32)
[2022-12-15] MEDS: MEROPENEM 1GM IVPB 100 ML IV SCH ×2 (10:11→22:32)
[2022-12-15] MEDS: ATENOLOL 25 MG TAB PO SCH (10:12)
[2022-12-15] MEDS: NIFEdipine ER 30 MG TAB PO SCH (10:12)
[2022-12-15] MEDS: LEVOTHYROXINE SODIUM 25 MCG TAB PO SCH (10:12)
[2022-12-15] MEDS: ACETAMINOPHEN 325 MG TAB PO PRN ×3 (10:30→22:31)
[2022-12-15] MEDS: ATORVASTATIN 20 MG TAB PO SCH (22:31)
[2022-12-16] VITALS (7 sets, daily range): BP systolic 99–142; BP diastolic 42–68; PULSE 58–85; RESP 16–19; TEMP 97.3–98.2; O2SAT 96–98
[2022-12-16] MEDS: GENTAMICIN OPTH sol 0.3% 5ml EACHEYE SCH ×4 (06:16→23:25)
[2022-12-16] MEDS: ACETAMINOPHEN 325 MG TAB PO PRN ×3 (06:17→18:39)
[2022-12-16 06:21] LABS: Potassium 3.8 mmol/L (3.5-5.1)
[2022-12-16 06:23] LABS: BUN/Creatinine Ratio 34.5 (10.0-20.0); Calcium 8.4 mg/dL (8.5-10.1)
[2022-12-16] MEDS ORDERED: FUROSEMIDE 40 MG TAB PO ONE (11:45)
[2022-12-16] MEDS: PANTOPRAZOLE 40 MG/10 ML VIAL INJ IV SCH (11:49)
[2022-12-16] MEDS: ENOXAPARIN SOD 40 MG/0.4 ML SYRINGE SC SCH (11:49)
[2022-12-16] MEDS: LEVOTHYROXINE SODIUM 25 MCG TAB PO SCH (11:52)
[2022-12-16] MEDS: ATENOLOL 25 MG TAB PO SCH (11:52)
[2022-12-16] MEDS: NIFEdipine ER 30 MG TAB PO SCH (11:52)
[2022-12-16] MEDS: TOPIRAMATE 25 MG TAB PO SCH (11:54)
[2022-12-16] MEDS: VANCOMYCIN HCL 125MG/5ML ORAL SOL PO SCH ×2 (18:39→23:25)
[2022-12-16] MEDS: ATORVASTATIN 20 MG TAB PO SCH (22:00)
[2022-12-17] VITALS (7 sets, daily range): BP systolic 114–149; BP diastolic 49–74; PULSE 78–92; RESP 16–18; TEMP 97.3–98.5; O2SAT 92–98
[2022-12-17] MEDS: ACETAMINOPHEN 325 MG TAB PO PRN ×3 (02:12→21:31)
[2022-12-17] MEDS: GENTAMICIN OPTH sol 0.3% 5ml EACHEYE SCH ×4 (06:14→23:55)
[2022-12-17] MEDS: VANCOMYCIN HCL 125MG/5ML ORAL SOL PO SCH ×4 (06:15→23:55)
[2022-12-17] MEDS: LEVOTHYROXINE SODIUM 25 MCG TAB PO SCH (06:42)
[2022-12-17 06:51] LABS: Calcium 8.4 mg/dL (8.5-10.1); Magnesium 2.3 mg/dL (1.6-2.6); Potassium 3.9 mmol/L (3.5-5.1)
[2022-12-17 06:53] LABS: BUN/Creatinine Ratio 26.3 (10.0-20.0)
[2022-12-17 08:16] LABS: Basophils # (auto) 0 10 ^3/uL (0-0.2); Basophils % (auto) 0.9 % (0.0-2.0); Eosinophils # (auto) 0.2 10 ^3/uL (0-0.8); Eosinophils % (auto) 3.9 % (0.0-7.0); Hematocrit 26.9 % (36.0-46.0); Lymphocytes # (auto) 0.7 10 ^3/uL (0.4-5.4); Lymphocytes % (auto) 13.7 % (10.0-50.0); Mean Corpuscular Hemoglobin 31.3 pg (28.0-32.0); Mean Corpuscular Hgb Conc. 33.6 g/dL (32.0-36.0); Mean Corpuscular Volume 93.3 fL (80.0-100.0); Monocytes # (auto) 0.4 10 ^3/uL (0-1.3); Monocytes % (auto) 7.6 % (0.0-12.0); Neutrophils # (auto) 3.8 10 ^3/uL (1.6-8.6); Neutrophils % (auto) 73.9 % (37.0-80.0); Red Blood Cells 2.89 10^6/uL (4.0-5.20); Red Cell Distribution Width 17.2 % (11.8-14.3); White Blood Cell 5.1 10^3/uL (4.4-10.8)
[2022-12-17] MEDS: FLORASTOR (S. BOULARDII) 250 MG CAP PO SCH (11:01)
[2022-12-17] MEDS: PANTOPRAZOLE 40 MG/10 ML VIAL INJ IV SCH (11:01)
[2022-12-17] MEDS: ATENOLOL 25 MG TAB PO SCH (11:04)
[2022-12-17] MEDS: NIFEdipine ER 30 MG TAB PO SCH (11:05)
[2022-12-17] MEDS: ENOXAPARIN SOD 40 MG/0.4 ML SYRINGE SC SCH (11:06)
[2022-12-17] MEDS ORDERED: FUROSEMIDE 40 MG/4 ML VIAL IV ONE (11:45)
[2022-12-17] MEDS: ATORVASTATIN 20 MG TAB PO SCH (20:01)
[2022-12-18] VITALS (7 sets, daily range): BP systolic 117–150; BP diastolic 53–100; PULSE 72–92; RESP 16–28; TEMP 97.4–98.2; O2SAT 94–100
[2022-12-18] MEDS: ACETAMINOPHEN 325 MG TAB PO PRN ×3 (03:43→17:48)
[2022-12-18] MEDS: GENTAMICIN OPTH sol 0.3% 5ml EACHEYE SCH ×3 (05:57→17:48)
[2022-12-18] MEDS: VANCOMYCIN HCL 125MG/5ML ORAL SOL PO SCH ×3 (05:58→17:48)
[2022-12-18] MEDS: LEVOTHYROXINE SODIUM 25 MCG TAB PO SCH (06:52)
[2022-12-18] MEDS ORDERED: VANC125C3 PO (09:34)
[2022-12-18] MEDS: PANTOPRAZOLE 40 MG/10 ML VIAL INJ IV SCH (10:24)
[2022-12-18] MEDS: FUROSEMIDE 20 MG TAB PO SCH (10:24)
[2022-12-18] MEDS: ENOXAPARIN SOD 40 MG/0.4 ML SYRINGE SC SCH (10:24)
[2022-12-18] MEDS: NIFEdipine ER 30 MG TAB PO SCH (10:25)
[2022-12-18] MEDS: FLORASTOR (S. BOULARDII) 250 MG CAP PO SCH (10:25)
[2022-12-18] MEDS: ATENOLOL 25 MG TAB PO SCH (10:25)
[2022-12-18 11:17] LABS: Magnesium 2.3 mg/dL (1.6-2.6); Potassium 3.9 mmol/L (3.5-5.1)
[2022-12-18 11:20] LABS: BUN/Creatinine Ratio 29.4 (10.0-20.0); Calcium 8.4 mg/dL (8.5-10.1)
[2022-12-18] MEDS: ATORVASTATIN 20 MG TAB PO SCH (19:35)
[2022-12-19] MEDS: ACETAMINOPHEN 325 MG TAB PO PRN ×3 (00:04→13:15)
[2022-12-19] MEDS: GENTAMICIN OPTH sol 0.3% 5ml EACHEYE SCH ×4 (00:04→18:00)
[2022-12-19] MEDS: VANCOMYCIN HCL 125MG/5ML ORAL SOL PO SCH ×4 (00:04→18:00)
[2022-12-19 05:00] VITALS: BP 125/87; PULSE 80; RESP 24; TEMP 97.5; O2SAT 98
[2022-12-19] MEDS: LEVOTHYROXINE SODIUM 25 MCG TAB PO SCH (06:28)
[2022-12-19 07:30] VITALS: BP 126/58; PULSE 75; PULSE 87; RESP 16; TEMP 97.4; O2SAT 99
[2022-12-19 09:00] VITALS: BP 126/58; PULSE 87; RESP 16; TEMP 97.4; O2SAT 99
[2022-12-19] MEDS: PANTOPRAZOLE 40 MG/10 ML VIAL INJ IV SCH (10:16)
[2022-12-19] MEDS: ENOXAPARIN SOD 40 MG/0.4 ML SYRINGE SC SCH (10:16)
[2022-12-19] MEDS: FLORASTOR (S. BOULARDII) 250 MG CAP PO SCH (10:17)
[2022-12-19] MEDS: ATENOLOL 25 MG TAB PO SCH (10:17)
[2022-12-19] MEDS: NIFEdipine ER 30 MG TAB PO SCH (10:18)
[2022-12-19] MEDS: FUROSEMIDE 20 MG TAB PO SCH (10:18)
[2022-12-19] MEDS ORDERED: METR-344 PO (10:51)
[2022-12-19 13:06] VITALS: BP 124/62; PULSE 71; RESP 14; TEMP 97.4; O2SAT 98
[2022-12-19] MEDS ORDERED: MORPHINE SULFATE 4 MG/ML SYR/VIAL IV PRN (14:45)
[2022-12-19 16:29] VITALS: BP 124/62; PULSE 71; RESP 14; TEMP 97.4; O2SAT 98
[2022-12-19 17:00] VITALS: BP 135/73; PULSE 90; RESP 16; TEMP 97.5; O2SAT 95
== END 2022-12-19 17:50 | disposition home health service (06) | DRG 871 ==
LOC: ER 11:48 → EDBD 11:48 → TELE 15:27 → TELE-EAST 12-09 22:50 → EAST 12-18 15:25
PROVIDERS: ADMIT Internal Medicine Geriatric Medicine; ATTEND Internal Medicine Geriatric Medicine
DX: A41.9 Sepsis, unspecified organism (principal); E43 Unspecified severe protein-calorie malnutrition; G93.41 Metabolic encephalopathy; E87.1 Hypo-osmolality and hyponatremia; A04.72 Enterocolitis due to Clostridium difficile, not specified as recurrent; N13.6 Pyonephrosis; K59.00 Constipation, unspecified; L89.159 Pressure ulcer of sacral region, unspecified stage; I11.0 Hypertensive heart disease with heart failure; E78.5 Hyperlipidemia, unspecified; J44.9 Chronic obstructive pulmonary disease, unspecified; I50.9 Heart failure, unspecified; Z68.20 Body mass index [BMI] 20.0-20.9, adult; E03.9 Hypothyroidism, unspecified; D63.8 Anemia in other chronic diseases classified elsewhere; I25.10 Atherosclerotic heart disease of native coronary artery without angina pectoris; Z74.01 Bed confinement status; R65.20 Severe sepsis without septic shock; Z79.82 Long term (current) use of aspirin; Z79.899 Other long term (current) drug therapy; Z82.49 Family history of ischemic heart disease and other diseases of the circulatory system; Z85.3 Personal history of malignant neoplasm of breast; Z90.11 Acquired absence of right breast and nipple; Z96.642 Presence of left artificial hip joint; Z96.651 Presence of right artificial knee joint; Z90.49 Acquired absence of other specified parts of digestive tract
CPT/HCPCS: 36415; 71045; 72131; 73560; 74176; 80048; 80053; 81001; 82140; 82270; 82728; 83540; 83550; 83605; 83690; 83735; 85025; 85045; 85610; 85730; 87040; 87086; 87493; 93005; 93970; 96361; 96365; 96375; 97110; 97116; 97163; C9113; G0378; J0696; J2185

== ENCOUNTER 2023-02-08 08:13 | Inpatient (IN) | payer OTHER ==
[~2023-02-08] VITALS: Ht 152.4 cm; Wt 58.9 kg
[~2023-02-08 08:13] MED LIST changes: +ASCO500T11 PO; +ASPI-543 PO; -ASPI325T4 PO; +CHOL20007 PO; -FURO20TA3 PO; +FURO40TA4 PO; +MAGN400T40 PO; +METR-344 PO; -NIF10C PO; +NIFE1TAB31 PO; -TOPI50TA53 PO; +VANC125C3 PO
[2023-02-08 08:52] LABS: Basophils # (auto) 0 10 ^3/uL (0-0.2); Basophils % (auto) 0.2 % (0.0-2.0); Eosinophils # (auto) 0.1 10 ^3/uL (0-0.8); Eosinophils % (auto) 0.4 % (0.0-7.0); Hematocrit 34.8 % (36.0-46.0); Hemoglobin 11.2 g/dL (12.2-16.2); Lymphocytes # (auto) 0.6 10 ^3/uL (0.4-5.4); Lymphocytes % (auto) 4.3 % (10.0-50.0); Mean Corpuscular Hemoglobin 29.6 pg (28.0-32.0); Mean Corpuscular Hgb Conc. 32.1 g/dL (32.0-36.0); Mean Corpuscular Volume 92.1 fL (80.0-100.0); Monocytes # (auto) 0.4 10 ^3/uL (0-1.3); Monocytes % (auto) 2.8 % (0.0-12.0); Neutrophils # (auto) 13.3 10 ^3/uL (1.6-8.6); Neutrophils % (auto) 92.3 % (37.0-80.0); Red Blood Cells 3.78 10^6/uL (4.0-5.20); White Blood Cell 14.4 10^3/uL (4.4-10.8)
[2023-02-08 09:11] LABS: Alanine Aminotransferase 23 U/L (7-40); Albumin 3.6 g/dL (3.2-4.8); Alkaline Phosphatase 166 U/L (46-116); Aspartate Aminotransferase 25 U/L (13-40); BUN/Creatinine Ratio 40.5 (10.0-20.0); Bilirubin, Total 0.2 mg/dL (0.2-1.0); Blood Urea Nitrogen 17 mg/dL (9-23); Chloride 90 mmol/L (98-107); Glucose 120 mg/dL (74-106); Magnesium 2.2 mg/dL (1.6-2.6); Potassium 4.1 mmol/L (3.5-5.1); Sodium 133 mmol/L (136-145)
[2023-02-08 09:14] LABS: Anion Gap 2.99999 (5-15)
[2023-02-08 09:18] LABS: Carbon Dioxide > 40 mmol/L (20-30)
[2023-02-08 10:00] VITALS: PULSE 68; RESP 24; O2SAT 98
[2023-02-08 10:19] LABS: Urine Bacteria MOD /hpf (None Seen); Urine Blood 1+ /uL (Negative); Urine Budding Yeast MODERATE /hpf (None Seen); Urine Clarity HAZY (Clear); Urine Color Yellow (Yellow); Urine Protein, UAD 1+ (Negative); Urine Specific Gravity 1.015 (1.001-1.035); Urine Urobilinogen Normal (Negative); Urine WBC 38 /hpf (0 - 5); Urine WBC Clumps PRESENT /hpf (None Seen); Urine pH 7.5 (5.0-8.0)
[2023-02-08 10:45] LABS: COVID19 ANTIGEN SOFIA FIA NEGATIVE (NEGATIVE)
[2023-02-08] MEDS ORDERED: AZITHROMYCIN 500MG/ 250ML 250 ML IV ONE (11:30)
[2023-02-08] MEDS ORDERED: LORazepam 2MG/ML-1ML VIAL IV ONE (12:15)
[2023-02-08] MEDS ORDERED: NITROGLYCERIN 0.4 MG SL TAB SL PRN (13:45)
[2023-02-08] MEDS ORDERED: MORPHINE SULFATE INJ 2 MG/ml SYRG IV PRN (13:45)
[2023-02-08] MEDS ORDERED: FUROSEMIDE 20 MG TAB PO ONE (14:00)
[2023-02-08] MEDS ORDERED: NIFEdipine ER 30 MG TAB PO ONE (14:00)
[2023-02-08] MEDS ORDERED: ONDANSETRON HCL 4 MG/2 ML VIAL IV PRN (14:00)
[2023-02-08] MEDS ORDERED: IPRATROPIUM BROM 0.5 MG/2.5ML INH SOL NEB PRN (14:00)
[2023-02-08] MEDS ORDERED: ALBUTEROL SULF 2.5 MG/0.5ML(0.5%) NEB SOLN NEB PRN (14:00)
[2023-02-08 14:39] VITALS: O2SAT 99
[2023-02-08 14:40] VITALS: PULSE 66; RESP 28; O2SAT 99
[2023-02-08] MEDS: PIPERACILLIN-TAZOB 3.375GM 100 ML IV SCH ×2 (14:56→22:25)
[2023-02-08 15:09] VITALS: BP 129/51; PULSE 70; RESP 18; TEMP 97; O2SAT 99
[2023-02-08] MEDS: hydrALAZINE HCL 20 MG/ML VL IV SCH (18:00)
[2023-02-08 19:25] VITALS: PULSE 70; RESP 22; O2SAT 100
[2023-02-08] MEDS: CARVEDILOL 3.125 MG TAB PO SCH (22:00)
[2023-02-08] MEDS: ATORVASTATIN 20 MG TAB PO SCH (22:00)
[2023-02-09] VITALS (12 sets, daily range): BP systolic 95–124; BP diastolic 41–61; PULSE 73–86; RESP 14–22; TEMP 97.6–99.6; O2SAT 96–99
[2023-02-09] MEDS: PIPERACILLIN-TAZOB 3.375GM 100 ML IV SCH ×3 (05:38→21:25)
[2023-02-09] MEDS: hydrALAZINE HCL 20 MG/ML VL IV SCH ×4 (05:38→18:00)
[2023-02-09 06:05] LABS: Basophils # (auto) 0 10 ^3/uL (0-0.2); Basophils % (auto) 0.2 % (0.0-2.0); Eosinophils # (auto) 0.1 10 ^3/uL (0-0.8); Eosinophils % (auto) 0.6 % (0.0-7.0); Hematocrit 30.6 % (36.0-46.0); Hemoglobin 10.1 g/dL (12.2-16.2); Lymphocytes # (auto) 0.6 10 ^3/uL (0.4-5.4); Lymphocytes % (auto) 5.5 % (10.0-50.0); Mean Corpuscular Hemoglobin 30.1 pg (28.0-32.0); Mean Corpuscular Hgb Conc. 32.9 g/dL (32.0-36.0); Mean Corpuscular Volume 91.3 fL (80.0-100.0); Monocytes # (auto) 0.5 10 ^3/uL (0-1.3); Monocytes % (auto) 4.6 % (0.0-12.0); Neutrophils % (auto) 89.1 % (37.0-80.0); Red Blood Cells 3.35 10^6/uL (4.0-5.20); Red Cell Distribution Width 16.5 % (11.8-14.3); White Blood Cell 11.2 10^3/uL (4.4-10.8)
[2023-02-09] MEDS: LEVOTHYROXINE SODIUM 25 MCG TAB PO SCH (06:07)
[2023-02-09 06:28] LABS: Alanine Aminotransferase 19 U/L (7-40); Albumin 3.5 g/dL (3.2-4.8); Alkaline Phosphatase 155 U/L (46-116); Aspartate Aminotransferase 20 U/L (13-40); Bilirubin, Total 0.2 mg/dL (0.2-1.0); Blood Urea Nitrogen 13 mg/dL (9-23); Calcium 9.2 mg/dL (8.7-10.4); Chloride 89 mmol/L (98-107); Glucose 99 mg/dL (74-106); Magnesium 2.4 mg/dL (1.6-2.6); Potassium 3.8 mmol/L (3.5-5.1); Sodium 134 mmol/L (136-145)
[2023-02-09 06:32] LABS: Anion Gap 4.99999 (5-15); Carbon Dioxide > 40 mmol/L (20-30)
[2023-02-09] MEDS: NIFEdipine ER 30 MG TAB PO SCH (10:00)
[2023-02-09] MEDS: CARVEDILOL 3.125 MG TAB PO SCH ×2 (10:00→22:47)
[2023-02-09] MEDS: ASPirin 81 mg TAB PO SCH (10:41)
[2023-02-09] MEDS: FUROSEMIDE 20 MG TAB PO SCH (10:42)
[2023-02-09] MEDS: PANTOPRAZOLE 40 MG/10 ML VIAL INJ IV SCH (10:42)
[2023-02-09] MEDS: AZITHROMYCIN 500MG/ 250ML 250 ML IV SCH (10:44)
[2023-02-09] MEDS: clonazePAM 0.5 MG TAB PO PRN (13:27)
[2023-02-09 17:13] LABS: Body Fluid Polymorphonuclear 40 % (0-25); Body Fluid Red Blood Cells 1645 CUMM (0-2000); Body Fluid White Blood Cells 195 CUMM (0-200)
[2023-02-09] MEDS: ATORVASTATIN 20 MG TAB PO SCH (21:26)
[2023-02-10] VITALS (9 sets, daily range): BP systolic 106–142; BP diastolic 47–80; PULSE 71–86; RESP 16–26; TEMP 97.7–98.3; O2SAT 95–98
[2023-02-10 05:13] LABS: Basophils # (auto) 0 10 ^3/uL (0-0.2); Basophils % (auto) 0.4 % (0.0-2.0); Eosinophils # (auto) 0.2 10 ^3/uL (0-0.8); Eosinophils % (auto) 1.5 % (0.0-7.0); Hematocrit 28.1 % (36.0-46.0); Hemoglobin 9.2 g/dL (12.2-16.2); Lymphocytes # (auto) 0.9 10 ^3/uL (0.4-5.4); Lymphocytes % (auto) 7.4 % (10.0-50.0); Mean Corpuscular Hemoglobin 29.5 pg (28.0-32.0); Mean Corpuscular Hgb Conc. 32.8 g/dL (32.0-36.0); Mean Corpuscular Volume 89.9 fL (80.0-100.0); Monocytes # (auto) 0.7 10 ^3/uL (0-1.3); Monocytes % (auto) 5.5 % (0.0-12.0); Neutrophils # (auto) 10.1 10 ^3/uL (1.6-8.6); Neutrophils % (auto) 85.2 % (37.0-80.0); Red Blood Cells 3.13 10^6/uL (4.0-5.20); Red Cell Distribution Width 16.3 % (11.8-14.3); White Blood Cell 11.9 10^3/uL (4.4-10.8)
[2023-02-10 05:24] LABS: Chloride 90 mmol/L (98-107); Potassium 3.7 mmol/L (3.5-5.1); Sodium 132 mmol/L (136-145)
[2023-02-10 05:25] LABS: Calcium 8.5 mg/dL (8.7-10.4)
[2023-02-10 05:30] LABS: BUN/Creatinine Ratio 34.8 (10.0-20.0); Blood Urea Nitrogen 16 mg/dL (9-23); Glucose 94 mg/dL (74-106)
[2023-02-10 05:31] LABS: Magnesium 1.9 mg/dL (1.6-2.6)
[2023-02-10] MEDS: PIPERACILLIN-TAZOB 3.375GM 100 ML IV SCH ×3 (05:48→21:08)
[2023-02-10] MEDS: hydrALAZINE HCL 20 MG/ML VL IV SCH ×5 (05:49→23:43)
[2023-02-10 05:50] LABS: Anion Gap 1.99999 (5-15)
[2023-02-10 05:52] LABS: Carbon Dioxide > 40 mmol/L (20-30)
[2023-02-10] MEDS: LEVOTHYROXINE SODIUM 25 MCG TAB PO SCH (05:59)
[2023-02-10] MEDS: CARVEDILOL 3.125 MG TAB PO SCH ×2 (10:00→22:44)
[2023-02-10] MEDS: NIFEdipine ER 30 MG TAB PO SCH (10:00)
[2023-02-10] MEDS: PANTOPRAZOLE 40 MG/10 ML VIAL INJ IV SCH (11:08)
[2023-02-10] MEDS: ASPirin 81 mg TAB PO SCH (11:08)
[2023-02-10] MEDS: FUROSEMIDE 20 MG TAB PO SCH (11:09)
[2023-02-10] MEDS: AZITHROMYCIN 500MG/ 250ML 250 ML IV SCH (11:09)
[2023-02-10 14:07] LABS: Protein, Body Fluid 2.3 g/dL (.)
[2023-02-10] MEDS: ATORVASTATIN 20 MG TAB PO SCH (21:10)
[2023-02-11] VITALS (11 sets, daily range): BP systolic 115–144; BP diastolic 52–68; PULSE 74–92; RESP 12–27; TEMP 96.7–97.8; O2SAT 94–100
[2023-02-11] MEDS: hydrALAZINE HCL 20 MG/ML VL IV SCH ×3 (05:35→18:00)
[2023-02-11] MEDS: PIPERACILLIN-TAZOB 3.375GM 100 ML IV SCH ×3 (05:46→21:26)
[2023-02-11] MEDS: LEVOTHYROXINE SODIUM 25 MCG TAB PO SCH (05:47)
[2023-02-11] MEDS: PANTOPRAZOLE 40 MG/10 ML VIAL INJ IV SCH (08:58)
[2023-02-11] MEDS: ASPirin 81 mg TAB PO SCH (08:59)
[2023-02-11] MEDS: AZITHROMYCIN 500MG/ 250ML 250 ML IV SCH (08:59)
[2023-02-11] MEDS: CARVEDILOL 3.125 MG TAB PO SCH ×2 (08:59→21:44)
[2023-02-11] MEDS: NIFEdipine ER 30 MG TAB PO SCH (08:59)
[2023-02-11] MEDS: FUROSEMIDE 20 MG TAB PO SCH (09:01)
[2023-02-11] MEDS: Ensure HIGH Protein Chocolate 8oz Bottle PO SCH ×2 (12:16→18:12)
[2023-02-11] MEDS: ACETAMINOPHEN 325 MG TAB PO PRN (13:46)
[2023-02-11] MEDS: clonazePAM 0.5 MG TAB PO PRN (14:32)
[2023-02-11] MEDS ORDERED: VANCOMYCIN HCL 125MG/5ML ORAL SOL PO ONE (15:00)
[2023-02-11] MEDS: VANCOMYCIN HCL 125MG/5ML ORAL SOL PO SCH ×2 (18:09→21:27)
[2023-02-11] MEDS: ATORVASTATIN 20 MG TAB PO SCH (21:27)
[2023-02-11] MEDS: FLORASTOR (S. BOULARDII) 250 MG CAP PO SCH (21:27)
[2023-02-12] VITALS (10 sets, daily range): BP systolic 94–139; BP diastolic 40–92; PULSE 74–102; RESP 12–20; TEMP 97.4–98.7; O2SAT 95–98
[2023-02-12] MEDS: clonazePAM 0.5 MG TAB PO PRN ×2 (02:31→16:48)
[2023-02-12] MEDS: hydrALAZINE HCL 20 MG/ML VL IV SCH ×2 (05:24)
[2023-02-12] MEDS: PIPERACILLIN-TAZOB 3.375GM 100 ML IV SCH ×3 (05:24→21:32)
[2023-02-12] MEDS: VANCOMYCIN HCL 125MG/5ML ORAL SOL PO SCH ×4 (05:25→21:23)
[2023-02-12 05:33] LABS: Basophils # (auto) 0 10 ^3/uL (0-0.2); Basophils % (auto) 0.5 % (0.0-2.0); Eosinophils # (auto) 0.2 10 ^3/uL (0-0.8); Eosinophils % (auto) 2.8 % (0.0-7.0); Hematocrit 28.1 % (36.0-46.0); Hemoglobin 9.5 g/dL (12.2-16.2); Lymphocytes # (auto) 0.8 10 ^3/uL (0.4-5.4); Lymphocytes % (auto) 11.3 % (10.0-50.0); Mean Corpuscular Hemoglobin 29.8 pg (28.0-32.0); Mean Corpuscular Hgb Conc. 33.7 g/dL (32.0-36.0); Mean Corpuscular Volume 88.5 fL (80.0-100.0); Monocytes # (auto) 0.5 10 ^3/uL (0-1.3); Monocytes % (auto) 6.6 % (0.0-12.0); Neutrophils # (auto) 5.8 10 ^3/uL (1.6-8.6); Neutrophils % (auto) 78.8 % (37.0-80.0); Red Blood Cells 3.17 10^6/uL (4.0-5.20); White Blood Cell 7.3 10^3/uL (4.4-10.8)
[2023-02-12 05:41] LABS: Chloride 88 mmol/L (98-107); Potassium 3.6 mmol/L (3.5-5.1); Sodium 128 mmol/L (136-145)
[2023-02-12 05:42] LABS: Calcium 8.4 mg/dL (8.7-10.4)
[2023-02-12 05:47] LABS: Glucose 101 mg/dL (74-106)
[2023-02-12] MEDS: LEVOTHYROXINE SODIUM 25 MCG TAB PO SCH (05:47)
[2023-02-12 05:48] LABS: BUN/Creatinine Ratio 36.4 (10.0-20.0); Blood Urea Nitrogen 16 mg/dL (9-23); Magnesium 1.9 mg/dL (1.6-2.6)
[2023-02-12 06:35] LABS: Carbon Dioxide > 40 mmol/L (20-30)
[2023-02-12] MEDS: Ensure HIGH Protein Chocolate 8oz Bottle PO SCH ×3 (08:00→18:07)
[2023-02-12] MEDS: PANTOPRAZOLE 40 MG/10 ML VIAL INJ IV SCH (09:41)
[2023-02-12] MEDS: FLORASTOR (S. BOULARDII) 250 MG CAP PO SCH ×2 (09:43→21:21)
[2023-02-12] MEDS: FUROSEMIDE 20 MG TAB PO SCH (09:43)
[2023-02-12] MEDS: NIFEdipine ER 30 MG TAB PO SCH (09:43)
[2023-02-12] MEDS: ASPirin 81 mg TAB PO SCH (09:43)
[2023-02-12] MEDS: AZITHROMYCIN 250 MG TAB PO SCH (09:44)
[2023-02-12] MEDS: CARVEDILOL 3.125 MG TAB PO SCH ×2 (09:44→21:33)
[2023-02-12] MEDS ORDERED: VANC125C3 PO (10:42)
[2023-02-12] MEDS ORDERED: hydrALAZINE HCL 20 MG/ML VL IV PRN (10:45)
[2023-02-12] MEDS: ATORVASTATIN 20 MG TAB PO SCH (21:18)
[2023-02-12] MEDS: ACETAMINOPHEN 325 MG TAB PO PRN (21:20)
[2023-02-13] VITALS (11 sets, daily range): BP systolic 110–140; BP diastolic 51–59; PULSE 80–96; RESP 16–20; TEMP 97.5–97.9; O2SAT 91–98
[2023-02-13] MEDS: PIPERACILLIN-TAZOB 3.375GM 100 ML IV SCH ×3 (06:39→20:58)
[2023-02-13] MEDS: LEVOTHYROXINE SODIUM 25 MCG TAB PO SCH (06:40)
[2023-02-13] MEDS: VANCOMYCIN HCL 125MG/5ML ORAL SOL PO SCH ×4 (06:43→21:00)
[2023-02-13 06:59] LABS: Anion Gap 0 (5-15); Calcium 8.7 mg/dL (8.7-10.4); Carbon Dioxide 37 mmol/L (20-30); Chloride 89 mmol/L (98-107); Sodium 126 mmol/L (136-145)
[2023-02-13 07:05] LABS: Glucose 92 mg/dL (74-106); Potassium 4.3 mmol/L (3.5-5.1)
[2023-02-13 07:21] LABS: BUN/Creatinine Ratio 19.1 (10.0-20.0)
[2023-02-13 07:22] LABS: Blood Urea Nitrogen 9 mg/dL (9-23)
[2023-02-13] MEDS: PANTOPRAZOLE 40 MG/10 ML VIAL INJ IV SCH (09:58)
[2023-02-13] MEDS: FLORASTOR (S. BOULARDII) 250 MG CAP PO SCH ×2 (09:58→20:59)
[2023-02-13] MEDS: ASPirin 81 mg TAB PO SCH (09:58)
[2023-02-13] MEDS: NIFEdipine ER 30 MG TAB PO SCH (10:00)
[2023-02-13] MEDS: CARVEDILOL 3.125 MG TAB PO SCH ×2 (10:00→23:01)
[2023-02-13] MEDS: AZITHROMYCIN 250 MG TAB PO SCH (10:01)
[2023-02-13] MEDS: FUROSEMIDE 20 MG TAB PO SCH (10:01)
[2023-02-13] MEDS: Ensure HIGH Protein Chocolate 8oz Bottle PO SCH ×3 (10:04→17:44)
[2023-02-13] MEDS ORDERED: FUROSEMIDE 20 MG/2 ML VIAL IV ONE (10:30)
[2023-02-13] MEDS: clonazePAM 0.5 MG TAB PO PRN (14:35)
[2023-02-13] MEDS: ATORVASTATIN 20 MG TAB PO SCH (20:59)
[2023-02-14] VITALS (11 sets, daily range): BP systolic 110–127; BP diastolic 47–97; PULSE 69–106; RESP 16–19; TEMP 97.3–97.9; O2SAT 95–99
[2023-02-14] MEDS: VANCOMYCIN HCL 125MG/5ML ORAL SOL PO SCH ×4 (05:23→22:11)
[2023-02-14] MEDS: PIPERACILLIN-TAZOB 3.375GM 100 ML IV SCH (05:23)
[2023-02-14 06:17] LABS: Chloride 88 mmol/L (98-107); Potassium 3.8 mmol/L (3.5-5.1)
[2023-02-14 06:18] LABS: Calcium 8.8 mg/dL (8.5-10.1)
[2023-02-14 06:23] LABS: BUN/Creatinine Ratio 39.2 (10.0-20.0); Blood Urea Nitrogen 20 mg/dL (9-23); Glucose 91 mg/dL (74-106)
[2023-02-14 06:25] LABS: Anion Gap 2.99999 (5-15); Sodium 131 mmol/L (136-145)
[2023-02-14 06:32] LABS: Carbon Dioxide > 40 mmol/L (20-30)
[2023-02-14] MEDS: LEVOTHYROXINE SODIUM 25 MCG TAB PO SCH (06:58)
[2023-02-14] MEDS: CARVEDILOL 3.125 MG TAB PO SCH ×2 (10:00→22:10)
[2023-02-14] MEDS: NIFEdipine ER 30 MG TAB PO SCH (10:00)
[2023-02-14] MEDS: ASPirin 81 mg TAB PO SCH (10:14)
[2023-02-14] MEDS: PANTOPRAZOLE 40 MG/10 ML VIAL INJ IV SCH (10:14)
[2023-02-14] MEDS: AZITHROMYCIN 250 MG TAB PO SCH (10:15)
[2023-02-14] MEDS: FUROSEMIDE 20 MG TAB PO SCH (10:25)
[2023-02-14] MEDS: FLORASTOR (S. BOULARDII) 250 MG CAP PO SCH ×2 (10:28→22:10)
[2023-02-14] MEDS: Ensure HIGH Protein Chocolate 8oz Bottle PO SCH ×3 (10:29→18:27)
[2023-02-14] MEDS: ATORVASTATIN 20 MG TAB PO SCH (22:11)
[2023-02-15] VITALS (10 sets, daily range): BP systolic 129–167; BP diastolic 51–75; PULSE 85–101; RESP 17–23; TEMP 97.6–98.9; O2SAT 95–99
[2023-02-15] MEDS: VANCOMYCIN HCL 125MG/5ML ORAL SOL PO SCH ×4 (06:00→21:56)
[2023-02-15] MEDS: LEVOTHYROXINE SODIUM 25 MCG TAB PO SCH (06:52)
[2023-02-15] MEDS: Ensure HIGH Protein Chocolate 8oz Bottle PO SCH ×3 (09:08→18:39)
[2023-02-15] MEDS: PANTOPRAZOLE 40 MG/10 ML VIAL INJ IV SCH (10:47)
[2023-02-15] MEDS: ASPirin 81 mg TAB PO SCH (10:47)
[2023-02-15] MEDS: FUROSEMIDE 20 MG TAB PO SCH (10:48)
[2023-02-15] MEDS: AZITHROMYCIN 250 MG TAB PO SCH (10:49)
[2023-02-15] MEDS: CARVEDILOL 3.125 MG TAB PO SCH ×2 (10:49→21:56)
[2023-02-15] MEDS: NIFEdipine ER 30 MG TAB PO SCH (10:50)
[2023-02-15] MEDS: FLORASTOR (S. BOULARDII) 250 MG CAP PO SCH ×2 (10:50→21:55)
[2023-02-15] MEDS: ACETAMINOPHEN 325 MG TAB PO PRN (14:52)
[2023-02-15] MEDS: ATORVASTATIN 20 MG TAB PO SCH (21:55)
[2023-02-15] MEDS: clonazePAM 0.5 MG TAB PO PRN (21:55)
[2023-02-16 05:00] VITALS: BP 142/59; PULSE 85; RESP 18; TEMP 97.8; O2SAT 95
[2023-02-16 06:03] LABS: Basophils # (auto) 0.1 10 ^3/uL (0-0.2); Eosinophils # (auto) 0.2 10 ^3/uL (0-0.8); Eosinophils % (auto) 2.6 % (0.0-7.0); Hematocrit 26.3 % (36.0-46.0); Hemoglobin 8.8 g/dL (12.2-16.2); Lymphocytes # (auto) 0.9 10 ^3/uL (0.4-5.4); Mean Corpuscular Hemoglobin 29.7 pg (28.0-32.0); Mean Corpuscular Hgb Conc. 33.4 g/dL (32.0-36.0); Mean Corpuscular Volume 88.8 fL (80.0-100.0); Monocytes # (auto) 0.5 10 ^3/uL (0-1.3); Monocytes % (auto) 8.3 % (0.0-12.0); Neutrophils # (auto) 4.9 10 ^3/uL (1.6-8.6); Neutrophils % (auto) 75.1 % (37.0-80.0); Nucleated Red Blood Cells % 0.1 %; Red Blood Cells 2.96 10^6/uL (4.0-5.20); Red Cell Distribution Width 16.2 % (11.8-14.3); White Blood Cell 6.5 10^3/uL (4.4-10.8)
[2023-02-16] MEDS: VANCOMYCIN HCL 125MG/5ML ORAL SOL PO SCH ×2 (06:10→12:32)
[2023-02-16] MEDS: LEVOTHYROXINE SODIUM 25 MCG TAB PO SCH (06:14)
[2023-02-16 06:23] LABS: Chloride 91 mmol/L (98-107); Potassium 4.2 mmol/L (3.5-5.1); Sodium 130 mmol/L (136-145)
[2023-02-16 06:29] LABS: BUN/Creatinine Ratio 47.2 (10.0-20.0); Blood Urea Nitrogen 17 mg/dL (9-23); Glucose 88 mg/dL (74-106)
[2023-02-16 07:00] LABS: Anion Gap 3 (5-15); Carbon Dioxide 36 mmol/L (20-30)
[2023-02-16 08:00] VITALS: O2SAT 96
[2023-02-16 09:00] VITALS: BP_SYST 127; BP_SYST 148; BP_DIAS 59; BP_DIAS 89; PULSE 61; PULSE 93; RESP 19; TEMP 98.1; O2SAT 96; O2SAT 98
[2023-02-16 10:00] VITALS: O2SAT 96
[2023-02-16] MEDS: PANTOPRAZOLE 40 MG/10 ML VIAL INJ IV SCH (10:12)
[2023-02-16] MEDS: NIFEdipine ER 30 MG TAB PO SCH (10:14)
[2023-02-16] MEDS: FUROSEMIDE 20 MG TAB PO SCH (10:14)
[2023-02-16] MEDS: CARVEDILOL 3.125 MG TAB PO SCH (10:14)
[2023-02-16] MEDS: ASPirin 81 mg TAB PO SCH (10:15)
[2023-02-16] MEDS: FLORASTOR (S. BOULARDII) 250 MG CAP PO SCH (10:15)
[2023-02-16] MEDS: Ensure HIGH Protein Chocolate 8oz Bottle PO SCH ×2 (10:15→12:32)
[2023-02-16 12:30] LABS: Magnesium 1.9 mg/dL (1.6-2.6)
[2023-02-16 13:00] VITALS: BP 142/61; PULSE 88; RESP 19; O2SAT 97
== END 2023-02-16 15:15 | disposition home or self-care (01) | DRG 871 ==
LOC: ER 08:13 → EDBD 08:13 → TELE 13:39 → TELE-EAST 02-09 04:02
PROVIDERS: ADMIT Internal Medicine Geriatric Medicine; ATTEND Internal Medicine Geriatric Medicine
PROC: 0W993ZZ Drainage of Right Pleural Cavity, Percutaneous Approach (ICD-10-PCS; principal; 2023-02-09)
DX: A41.9 Sepsis, unspecified organism (principal); E43 Unspecified severe protein-calorie malnutrition; J18.9 Pneumonia, unspecified organism; J96.21 Acute and chronic respiratory failure with hypoxia; G93.41 Metabolic encephalopathy; J44.0 Chronic obstructive pulmonary disease with (acute) lower respiratory infection; J90 Pleural effusion, not elsewhere classified; J98.11 Atelectasis; A04.72 Enterocolitis due to Clostridium difficile, not specified as recurrent; N39.0 Urinary tract infection, site not specified; Z20.822 Contact with and (suspected) exposure to COVID-19; Z66 Do not resuscitate; D63.8 Anemia in other chronic diseases classified elsewhere; E03.9 Hypothyroidism, unspecified; E78.2 Mixed hyperlipidemia; K76.0 Fatty (change of) liver, not elsewhere classified; Z86.19 Personal history of other infectious and parasitic diseases; Z96.642 Presence of left artificial hip joint; Z96.651 Presence of right artificial knee joint; I11.0 Hypertensive heart disease with heart failure; I25.10 Atherosclerotic heart disease of native coronary artery without angina pectoris; I50.9 Heart failure, unspecified; Z82.49 Family history of ischemic heart disease and other diseases of the circulatory system; Z79.899 Other long term (current) drug therapy; Z91.041 Radiographic dye allergy status; Z88.5 Allergy status to narcotic agent; Z88.6 Allergy status to analgesic agent; Z88.8 Allergy status to other drugs, medicaments and biological substances; Z68.25 Body mass index [BMI] 25.0-25.9, adult
CPT/HCPCS: 32555; 36415; 71045; 80048; 80053; 81001; 83605; 83735; 83880; 84443; 84484; 85025; 87040; 87205; 87426; 87493; 89051; 93005; 94640; 96365; 96366; 96375; 99291; C9113; G0378; J2543

== ENCOUNTER 2023-03-12 08:56 | Inpatient (IN) | payer OTHER ==
[~2023-03-12] VITALS: Ht 160 cm; Wt 57.8 kg
[2023-03-12 09:15] VITALS: PULSE 71; RESP 20; O2SAT 95
[2023-03-12 10:29] LABS: Basophils # (auto) 0.1 10 ^3/uL (0-0.2); Basophils % (auto) 0.8 % (0.0-2.0); Eosinophils # (auto) 0.1 10 ^3/uL (0-0.8); Eosinophils % (auto) 1.5 % (0.0-7.0); Hematocrit 33.1 % (36.0-46.0); Hemoglobin 10.8 g/dL (12.2-16.2); Lymphocytes # (auto) 0.8 10 ^3/uL (0.4-5.4); Lymphocytes % (auto) 12.2 % (10.0-50.0); Mean Corpuscular Hemoglobin 28.4 pg (28.0-32.0); Mean Corpuscular Hgb Conc. 32.7 g/dL (32.0-36.0); Monocytes # (auto) 0.5 10 ^3/uL (0-1.3); Monocytes % (auto) 8.2 % (0.0-12.0); Neutrophils # (auto) 4.9 10 ^3/uL (1.6-8.6); Neutrophils % (auto) 77.3 % (37.0-80.0); Nucleated Red Blood Cells % 0.2 %; White Blood Cell 6.4 10^3/uL (4.4-10.8)
[2023-03-12 10:41] LABS: Alanine Aminotransferase 90 U/L (7-40); Albumin 3.8 g/dL (3.2-4.8); Alkaline Phosphatase 111 U/L (46-116); Anion Gap 4 (5-15); Aspartate Aminotransferase 80 U/L (13-40); BUN/Creatinine Ratio 113.2 (10.0-20.0); Blood Urea Nitrogen 43 mg/dL (9-23); Calcium 9.2 mg/dL (8.5-10.1); Carbon Dioxide 35 mmol/L (20-30); Chloride 91 mmol/L (98-107); Glucose 102 mg/dL (74-106); Potassium 4.4 mmol/L (3.5-5.1); Sodium 130 mmol/L (136-145)
[2023-03-12 10:42] LABS: Bilirubin, Total 0.2 mg/dL (0.2-1.0); Total Protein 6.3 g/dL (5.7-8.2)
[2023-03-12] MEDS ORDERED: CEFTRIAXONE SODIUM 2 GM in D5W 5% 100 ML IV ONE (11:15)
[2023-03-12] MEDS ORDERED: SODIUM CHLORIDE 0.9% 1,000 ML IV ONE (11:15)
[2023-03-12 11:23] LABS: Lipase 131 U/L (12-53)
[2023-03-12 12:00] LABS: Urine Bacteria FEW /hpf (None Seen); Urine Blood Negative /uL (Negative); Urine Budding Yeast FEW /hpf (None Seen); Urine Clarity Clear (Clear); Urine Protein, UAD Negative (Negative); Urine Specific Gravity 1.008 (1.001-1.035); Urine Urobilinogen Normal (Negative); Urine WBC 7 /hpf (0 - 5); Urine pH 6.5 (5.0-8.0)
[2023-03-12 12:02] LABS: Urine Color STRAW (Yellow)
[2023-03-12] MEDS ORDERED: ENOXAPARIN SOD 30 MG/0.3 ML SYRINGE SC ONE (14:30)
[2023-03-12] MEDS ORDERED: NITROGLYCERIN 0.4 MG SL TAB SL PRN (14:30)
[2023-03-12] MEDS ORDERED: MORPHINE SULFATE INJ 2 MG/ml SYRG IV PRN (14:30)
[2023-03-12] MEDS: metroNIDAZOLE 500MG/100ML 100 ML IV SCH ×2 (16:44→22:41)
[2023-03-12] MEDS: ONDANSETRON HCL 4 MG/2 ML VIAL IV PRN (18:33)
[2023-03-12 20:00] VITALS: PULSE 7; RESP 24; O2SAT 92
[2023-03-12] MEDS: LINEZOLID 600MG/300ML 300 ML IV SCH (23:11)
[2023-03-13] MEDS: ALPRAZolam 0.5 MG TAB PO PRN (03:01)
[2023-03-13 04:12] LABS: Basophils # (auto) 0.1 10 ^3/uL (0-0.2); Basophils % (auto) 1.5 % (0.0-2.0); Eosinophils # (auto) 0.2 10 ^3/uL (0-0.8); Eosinophils % (auto) 2.8 % (0.0-7.0); Hematocrit 31.7 % (36.0-46.0); Hemoglobin 10.3 g/dL (12.2-16.2); Lymphocytes % (auto) 17.3 % (10.0-50.0); Mean Corpuscular Hemoglobin 28.6 pg (28.0-32.0); Mean Corpuscular Hgb Conc. 32.6 g/dL (32.0-36.0); Mean Corpuscular Volume 87.7 fL (80.0-100.0); Monocytes # (auto) 0.7 10 ^3/uL (0-1.3); Monocytes % (auto) 11.4 % (0.0-12.0); Neutrophils # (auto) 3.9 10 ^3/uL (1.6-8.6); Nucleated Red Blood Cells % 0.2 %; Red Blood Cells 3.62 10^6/uL (4.0-5.20); Red Cell Distribution Width 16.5 % (11.8-14.3); White Blood Cell 5.8 10^3/uL (4.4-10.8)
[2023-03-13 04:35] LABS: Alanine Aminotransferase 77 U/L (7-40); Albumin 3.6 g/dL (3.2-4.8); Alkaline Phosphatase 111 U/L (46-116); Anion Gap 1 (5-15); Aspartate Aminotransferase 61 U/L (13-40); BUN/Creatinine Ratio 82.4 (10.0-20.0); Carbon Dioxide 30 mmol/L (20-30); Chloride 95 mmol/L (98-107); Glucose 94 mg/dL (74-106); Magnesium 2.2 mg/dL (1.6-2.6); Potassium 4.5 mmol/L (3.5-5.1); Sodium 126 mmol/L (136-145)
[2023-03-13 04:36] LABS: Bilirubin, Total < 0.2 mg/dL (0.2-1.0); Total Protein 6.3 g/dL (5.7-8.2)
[2023-03-13 04:49] LABS: Blood Urea Nitrogen 28 mg/dL (9-23)
[2023-03-13] MEDS: metroNIDAZOLE 500MG/100ML 100 ML IV SCH ×3 (06:05→20:59)
[2023-03-13] MEDS: ENOXAPARIN SOD 30 MG/0.3 ML SYRINGE SC SCH (10:00)
[2023-03-13] MEDS: LINEZOLID 600MG/300ML 300 ML IV SCH ×2 (11:18→22:34)
[2023-03-13 13:31] VITALS: BP 143/65; PULSE 74; RESP 17; TEMP 98; O2SAT 94
[2023-03-13] MEDS ORDERED: CLON0.5T4 PO (13:38)
[2023-03-13] MEDS ORDERED: POTA-211 PO (13:38)
[2023-03-13] MEDS: SODIUM CHLORIDE 0.9% 1,000 ML IV SCH (15:34)
[2023-03-13] MEDS: ONDANSETRON HCL 4 MG/2 ML VIAL IV PRN (15:35)
[2023-03-13 16:38] VITALS: BP 122/56; PULSE 76; RESP 16; TEMP 97.8; O2SAT 92
[2023-03-13 18:19] VITALS: PULSE 76; RESP 16; O2SAT 92
[2023-03-13 20:30] VITALS: PULSE 83; RESP 20; O2SAT 93
[2023-03-13 22:00] VITALS: BP 124/83; PULSE 83; RESP 20; TEMP 97.8; O2SAT 93
[2023-03-14] VITALS (7 sets, daily range): BP systolic 115–153; BP diastolic 46–68; PULSE 74–80; RESP 16–20; TEMP 97.6–98.7; O2SAT 93–99
[2023-03-14] MEDS: SODIUM CHLORIDE 0.9% 1,000 ML IV SCH ×2 (04:25→21:05)
[2023-03-14] MEDS: metroNIDAZOLE 500MG/100ML 100 ML IV SCH (06:05)
[2023-03-14] MEDS: LINEZOLID 600MG/300ML 300 ML IV SCH ×2 (09:37→21:47)
[2023-03-14] MEDS: ONDANSETRON HCL 4 MG/2 ML VIAL IV PRN (09:38)
[2023-03-14] MEDS: ENOXAPARIN SOD 30 MG/0.3 ML SYRINGE SC SCH (09:38)
[2023-03-14 16:20] LABS: Amylase 145 U/L (30-118)
[2023-03-14 16:55] LABS: Lipase 101 U/L (12-53)
[2023-03-14] MEDS: PANCREATIC ENZYMES 4200 UNIT CAP PO SCH (17:18)
[2023-03-14] MEDS: ALPRAZolam 0.5 MG TAB PO PRN (21:49)
[2023-03-15] VITALS (7 sets, daily range): BP systolic 116–158; BP diastolic 52–55; PULSE 74–89; RESP 16–18; TEMP 97.5–98.3; O2SAT 93–97
[2023-03-15 05:53] LABS: Basophils # (auto) 0.1 10 ^3/uL (0-0.2); Basophils % (auto) 1.2 % (0.0-2.0); Eosinophils # (auto) 0.1 10 ^3/uL (0-0.8); Hematocrit 32.7 % (36.0-46.0); Hemoglobin 10.5 g/dL (12.2-16.2); Lymphocytes # (auto) 0.8 10 ^3/uL (0.4-5.4); Lymphocytes % (auto) 14.4 % (10.0-50.0); Mean Corpuscular Hemoglobin 28.1 pg (28.0-32.0); Mean Corpuscular Hgb Conc. 32.1 g/dL (32.0-36.0); Mean Corpuscular Volume 87.6 fL (80.0-100.0); Monocytes # (auto) 0.6 10 ^3/uL (0-1.3); Monocytes % (auto) 10.1 % (0.0-12.0); Neutrophils # (auto) 3.9 10 ^3/uL (1.6-8.6); Neutrophils % (auto) 72.3 % (37.0-80.0); Red Blood Cells 3.73 10^6/uL (4.0-5.20); Red Cell Distribution Width 16.3 % (11.8-14.3); White Blood Cell 5.5 10^3/uL (4.4-10.8)
[2023-03-15 06:06] LABS: Alanine Aminotransferase 53 U/L (7-40); Albumin 3.6 g/dL (3.2-4.8); Alkaline Phosphatase 103 U/L (46-116); Anion Gap 2 (5-15); Aspartate Aminotransferase 38 U/L (13-40); BUN/Creatinine Ratio 52.8 (10.0-20.0); Blood Urea Nitrogen 19 mg/dL (9-23); Calcium 9.3 mg/dL (8.7-10.4); Carbon Dioxide 35 mmol/L (20-30); Chloride 94 mmol/L (98-107); Glucose 92 mg/dL (74-106); Lipase 80 U/L (12-53); Potassium 4.5 mmol/L (3.5-5.1)
[2023-03-15 06:07] LABS: Bilirubin, Total 0.2 mg/dL (0.2-1.0); Total Protein 6.1 g/dL (5.7-8.2)
[2023-03-15 06:08] LABS: Sodium 131 mmol/L (136-145)
[2023-03-15 06:22] LABS: Amylase 137 U/L (30-118)
[2023-03-15] MEDS: ENOXAPARIN SOD 30 MG/0.3 ML SYRINGE SC SCH (10:46)
[2023-03-15] MEDS: PANCREATIC ENZYMES 4200 UNIT CAP PO SCH ×3 (10:46→18:18)
[2023-03-15] MEDS: LINEZOLID 600MG/300ML 300 ML IV SCH ×2 (10:47→21:54)
[2023-03-15] MEDS: SODIUM CHLORIDE 0.9% 1,000 ML IV SCH (14:53)
[2023-03-15] MEDS: ALPRAZolam 0.5 MG TAB PO PRN ×2 (14:54→21:54)
[2023-03-16] VITALS (7 sets, daily range): BP systolic 123–140; BP diastolic 57–75; PULSE 74–103; RESP 15–19; TEMP 85–98.5; O2SAT 93–100
[2023-03-16] MEDS: ACETAMINOPHEN 325 MG TAB PO PRN (00:53)
[2023-03-16] MEDS: SODIUM CHLORIDE 0.9% 1,000 ML IV SCH (01:03)
[2023-03-16] MEDS: ALPRAZolam 0.5 MG TAB PO PRN ×2 (06:32→21:46)
[2023-03-16] MEDS: PANCREATIC ENZYMES 4200 UNIT CAP PO SCH ×3 (07:55→17:48)
[2023-03-16] MEDS ORDERED: PANC1CAP48 PO (09:24)
[2023-03-16] MEDS ORDERED: LINE1TAB6 PO (09:25)
[2023-03-16] MEDS: LINEZOLID 600MG/300ML 300 ML IV SCH ×2 (09:43→21:46)
[2023-03-16] MEDS: ENOXAPARIN SOD 30 MG/0.3 ML SYRINGE SC SCH (09:43)
[2023-03-16] MEDS ORDERED: FUROSEMIDE 40 MG TAB PO ONE (12:30)
[2023-03-17] MEDS: ACETAMINOPHEN 325 MG TAB PO PRN (03:07)
[2023-03-17 05:00] VITALS: BP 122/59; PULSE 87; RESP 19; TEMP 97.9; O2SAT 97
[2023-03-17] MEDS: ALPRAZolam 0.5 MG TAB PO PRN (05:59)
[2023-03-17 06:23] LABS: Anion Gap 4 (5-15); Carbon Dioxide 33 mmol/L (20-30); Chloride 91 mmol/L (98-107); Potassium 4.5 mmol/L (3.5-5.1); Sodium 128 mmol/L (136-145)
[2023-03-17 06:29] LABS: Glucose 85 mg/dL (74-106)
[2023-03-17 06:30] LABS: Blood Urea Nitrogen 24 mg/dL (9-23)
[2023-03-17 08:30] VITALS: RESP 14; O2SAT 96
[2023-03-17 09:00] VITALS: BP 149/73; PULSE 95; RESP 18; TEMP 98.3; O2SAT 96
[2023-03-17] MEDS ORDERED: FUROSEMIDE 40 MG TAB PO SCH (10:00)
[2023-03-17] MEDS: LINEZOLID 600MG/300ML 300 ML IV SCH (10:57)
[2023-03-17] MEDS: PANCREATIC ENZYMES 4200 UNIT CAP PO SCH ×2 (10:58→12:00)
[2023-03-17] MEDS: ENOXAPARIN SOD 30 MG/0.3 ML SYRINGE SC SCH (10:58)
[2023-03-17 13:00] VITALS: BP 136/67; PULSE 100; RESP 17; TEMP 98.4; O2SAT 95
== END 2023-03-17 16:30 | disposition home health service (06) | DRG 438 ==
LOC: ER 08:56 → EDBD 08:56 → OVERFLOW 14:30 → CENTRAL 03-13 12:26
PROVIDERS: ADMIT Internal Medicine Geriatric Medicine; ATTEND Internal Medicine Geriatric Medicine
DX: K86.89 Other specified diseases of pancreas (principal); E43 Unspecified severe protein-calorie malnutrition; N39.0 Urinary tract infection, site not specified; Z16.21 Resistance to vancomycin; E87.1 Hypo-osmolality and hyponatremia; J96.10 Chronic respiratory failure, unspecified whether with hypoxia or hypercapnia; I11.0 Hypertensive heart disease with heart failure; E86.0 Dehydration; B95.2 Enterococcus as the cause of diseases classified elsewhere; D63.8 Anemia in other chronic diseases classified elsewhere; E03.9 Hypothyroidism, unspecified; J44.9 Chronic obstructive pulmonary disease, unspecified; E78.2 Mixed hyperlipidemia; I25.10 Atherosclerotic heart disease of native coronary artery without angina pectoris; I50.9 Heart failure, unspecified; Z86.19 Personal history of other infectious and parasitic diseases; Z91.041 Radiographic dye allergy status; Z90.710 Acquired absence of both cervix and uterus; Z68.22 Body mass index [BMI] 22.0-22.9, adult
CPT/HCPCS: 36415; 71045; 80048; 80053; 81001; 82150; 83690; 83735; 83880; 84484; 85025; 87081; 87086; 87186; 87493; G0378; J0696; J2405; J3490; J7060